=== PATIENT | male | born 1955 | race Two or more races ===

== ENCOUNTER 2016-07-13 20:30 | Inpatient (IN) | payer OTHER ==
[2016-07-13 22:10] VITALS: BMI 24.1
--- NOTE | 2016-07-13 22:50 | HP ---
CIWA Score - CIWA Score Nausea/Vomitin Muscle Tremors: 4-Moderate,w/Arms Extend Anxiety: 4-Mod. Anxious/Guarded Agitation: 4-Moderately Restless Paroxysmal Sweats: 4-Forehead w/Sweat Beads Orientation: 1-Uncertain about Date Tacttile Disturbances: 0-None Auditory Disturbances: 0-None Visual Disturbances: 0-None Headache: 2-Mild CIWA-Ar Total Score: 22 Admission ROS BHS - HPI Chief Complaint: WITHDRAWAL SX'S Allergies/Adverse Reactions: Allergies Allergy/AdvReac Type Severity Reaction Status Date / Time Penicillins Allergy Severe Elevated Verified 07/13/16 22:45 Blood Pressure History of Present Illness: 61 Y.O. MALE WITH LONG H/O ALCOHOL DEPENDENCE ADMITTED FOR DETOX TXMENT. DENIES RECENT DETOX TXMENT. STATES LONGEST CLEAN TIME 1 MONTH. CLIENT WAS SEEN AT [facility] ED TODAY FOR SEIZURES DUE TO ALCOHOL WITHDRAWAL. DOCUMENTATION PROVIDED. HEAD CT FOR HEAD TRAUMA NOTED NO ACUTE INTRACRANIAL HEMORRHAGE OR DISPLACED CALVARIAL FX. LEFT FORHEAD SOFT TISSUE INJURY. HE ALSO GIVEN VALIUM AND LIBRIUM FOR ALCOHOL WITHDRAWAL SEIZURES W/O COMPLICATIONS. WAS BEEN MEDICALLY CLEARED AND DC FOR DETOX. Exam Limitations: Physical Impairment (AMBULATES WITH CANE) - Ebola screening Have you traveled outside of the country in the last 21 days: No (N) Have you had contact with anyone from an Ebola affected area: No Have you been sick,other than usual withdrawal symptoms: No Do you have a fever: No - Review of Systems Constitutional: Chills, Loss of Appetite, Malaise, Night Sweats EENT: reports: Nose Congestion, Dental Problems (POOR DENTITION) Respiratory: reports: No Symptoms reported Cardiac: reports: No Symptoms Reported GI: reports: Diarrhea, Poor Appetite, Poor Fluid Intake : reports: No Symptoms Reported Musculoskeletal: reports: Other (HAND AND LEG CRAMPS) Integumentary: reports: Other (L FOREHEAD HEMATOMA) Neuro: reports: Seizure (ALCOHOL WITHDRAWALS) Endocrine: reports: No Symptoms Reported Hematology: reports: No Symptoms Reported Psychiatric: reports: Anxious Other Systems: Reviewed and Negative Patient History - Patient Medical History Hx Anemia: No Hx Asthma: No Hx Chronic Obstructive Pulmonary Disease (COPD): No Hx Cancer: No Hx Cardiac Disorders: No Hx Congestive Heart Failure: No Hx Hypertension: Yes (DOES NOT RECALL MEDS. REPORTS NON COMPLIANCE) Hx Hypercholesterolemia: No Hx Pacemaker: No HX Cerebrovascular Accident: No Hx Seizures: Yes (ALCOHOL RELATED LAST ONE TODAY) Hx Dementia: No Hx Diabetes: No Hx Gastrointestinal Disorders: No Hx Liver Disease: No Hx Genitourinary Disorders: No Hx Sexually Transmitted Disorders: No Hx Renal Disease (ESRD): No Hx Thyroid Disease: No Hx Human Immunodeficiency Virus (HIV): No Hx Hepatitis C: No Hx Depression: No Hx Suicide Attempt: No Hx Bipolar Disorder: No Hx Schizophrenia: No Other Medical History: DENIES - Patient Surgical History Past Surgical History: Yes Hx Neurologic Surgery: No Hx Cataract Extraction: No Hx Cardiac Surgery: No Hx Lung Surgery: No Hx Breast Surgery: No Hx Breast Biopsy: No Hx Abdominal Surgery: No Hx Appendectomy: No Hx Cholecystectomy: No Hx Genitourinary Surgery: No Hx Section: No Hx Orthopedic Surgery: Yes (FX OF R TIBIA/FIBULA) Anesthesia Reaction: No - PPD History Previous Implant?: Yes Documented Results: Negative w/o proof Implanted On Prior R Admission?: No PPD to be Administered?: Yes - Smoking Cessation Smoking history: Current every day smoker Have you smoked in the past 12 months: Yes Aproximately how many cigarettes per day: 20 Cigars Per Day: 0 Hx Chewing Tobacco Use: No Initiated information on smoking cessation: Yes 'Breaking Loose' booklet given: 07/13/16 - Substance & Tx. History Hx Alcohol Use: Yes Hx Substance Use: Yes Substance Use Type: Alcohol Hx Substance Use Treatment: Yes ([facility]) - Substances Abused Alcohol Route: Oral Frequency: Daily Amount used: liquor- 3 pints Age of first use: 10 Date of Last Use: 07/13/16 Family Disease History - Family Disease History Family Disease History: Heart Disease: Father ( [place]), Mother, Other: Brother (ALCOHOL/DRUG ABUSE) Admission Physical Exam S - Vital Signs Vital Signs: Vital Signs - 24 hr 07/13/16 22:06 Temperature 95.7 F L Pulse Rate 102 H Respiratory 18 Rate Blood Pressure 148/99 - Physical General Appearance: Yes: Disheveled, Mild Distress, Tremorous, Sweating, Anxious , Other (UNKEMPT. SMELLS OF URINE) HEENTM: Yes: EOMI, GAVI, Pharynx Normal Respiratory: Yes: Chest Non-Tender, Lungs Clear, Normal Breath Sounds, No Respiratory Distress, No Accessory Muscle Use Neck: Yes: No masses,lesions,Nodules, Supple, Trachea in good position Breast: Yes: Breast Exam Deferred Cardiology: Yes: Regular Rhythm, Regular Rate, S1, S2 Abdominal: Yes: Normal Bowel Sounds, Non Tender, Flat, Soft Genitourinary: Yes: Within Normal Limits Back: Yes: Normal Inspection Musculoskeletal: Yes: full range of Motion, Other (AMBULATES WITH CANE) Extremities: Yes: Normal Range of Motion, Non-Tender, Tremors Neurological: Yes: Alert, Motor Strength 5/5 Integumentary: Yes: Other (L FOREHEAD HEMATOMA WITH SUPERFICIAL ABRASIONS) Lymphatic: Yes: Within Normal Limits - Diagnostic (1) Alcohol dependence with uncomplicated withdrawal Current Visit: Yes Status: Acute (2) Alcohol withdrawal seizure Current Visit: Yes Status: Acute Qualifiers: Complication of substance-induced condition: uncomplicated Qualified Code(s): F10.230 - Alcohol dependence with withdrawal, uncomplicated (3) Nicotine dependence Current Visit: Yes Status: Acute Qualifiers: Nicotine product type: cigarettes Substance use status: uncomplicated Qualified Code(s): F17.210 - Nicotine dependence, cigarettes, uncomplicated (4) Traumatic hematoma of head Current Visit: Yes Status: Acute (5) HTN (hypertension) Current Visit: Yes Status: Chronic Qualifiers: Hypertension type: essential hypertension Qualified Code(s): I10 - Essential (primary) hypertension Cleared for Admission S - Detox or Rehab [facility] Level of Care: Medically Managed Detox Regimen/Protocol: Librium [facility] Breath Alcohol Content Breath Alcohol Content: 0 Urine Drug Screen - Results Urine Drug Screen Results: BZO-Benzodiazepines
[2016-07-13] MEDS ORDERED: LOPERAMIDE HCL 2 MG CAPSULE PO PRN (23:08)
[2016-07-13] MEDS ORDERED: diphenhydrAMINE HCL 50 MG CAPSULE PO PRN (23:08)
[2016-07-13] MEDS ORDERED: chlordiazePOXIDE HCL 25 MG CAPSULE PO PRN (23:08)
[2016-07-13] MEDS ORDERED: MAGNESIUM CITRATE 300 ML BOTTLE PO PRN (23:08)
[2016-07-13] MEDS ORDERED: MAG HYDROX/AL HYDROX/SIMETH 30 ML UNIT-DOSE CUP PO PRN (23:08)
[2016-07-13] MEDS ORDERED: guaiFENesin/D-METHORPHAN HB 10 ML UNIT-DOSE CUPS PO PRN (23:08)
[2016-07-13] MEDS ORDERED: MAGNESIUM HYDROX 2400MG/30ML ORAL SUSPENSION 30 ML CUP PO PRN (23:08)
[2016-07-13] MEDS ORDERED: hydrOXYzine PAMOATE 50 MG CAPSULE (FP) PO PRN (23:08)
[2016-07-13] MEDS ORDERED: ACETAMINOPHEN 325 MG TABLET (FP) PO PRN (23:08)
[2016-07-13] MEDS ORDERED: MENTHOL/PHENOL 1 EACH UD MM PRN (23:08)
[2016-07-13] MEDS ORDERED: NICOTINE POLACRILEX 2 MG GUM BC PRN (23:08)
[2016-07-13] MEDS ORDERED: P-EPHED 60MG/TRIPROLIDI 2.5MG TABLET PO PRN (23:08)
[2016-07-13] MEDS ORDERED: IBUPROFEN 400 MG TABLET (FP) PO PRN (23:08)
[2016-07-13] MEDS ORDERED: cloNIDine HCL 0.1 MG TABLET PO PRN (23:14)
[2016-07-13] MEDS: chlordiazePOXIDE HCL 25 MG CAPSULE PO SCH (23:35)
[2016-07-14] MEDS: chlordiazePOXIDE HCL 25 MG CAPSULE PO SCH ×4 (06:02→22:26)
--- NOTE | 2016-07-14 10:07 | PN ---
[facility] CIWA - CIWA Score Nausea/Vomitin-No Nausea/No Vomiting Muscle Tremors: 4-Moderate,w/Arms Extend Anxiety: 4-Mod. Anxious/Guarded Agitation: 4-Moderately Restless Paroxysmal Sweats: 2 Orientation: 0-Oriented Tacttile Disturbances: 3-Moderate Itch/Numb/Burn Auditory Disturbances: 0-None Visual Disturbances: 0-None Headache: 0-None Present CIWA-Ar Total Score: 17 BHS Progress Note (SOAP) Subjective: ANXIETY,SWEATS,TREMORS,FATIGUE. Objective: 07/14/16 10:07 Vital Signs Temperature 96.3 F L 07/14/16 09:44 Pulse Rate 111 H 07/14/16 09:44 Respiratory Rate 20 07/14/16 09:44 Blood Pressure 149/88 07/14/16 09:44 O2 Sat by Pulse Oximetry (%) LABS PENDING Assessment: 07/14/16 10:07 WITHDRAWAL SX Plan: CONTINUE DETOX
[2016-07-14] MEDS: PRENATAL VITAMINS W/ FOLIC ACID TABLET (FP) PO SCH (10:09)
[2016-07-14] MEDS: NICOTINE 21 MG/24 HOURS TOPICAL PATCH TD SCH (10:10)
[2016-07-14 10:11] LABS: MCH 30.9 pg (25.7-33.7); MCHC 33.4 g/dl (32.0-35.9); MEAN CELL VOLUME 92.5 fl (80-96); MEAN PLT VOLUME 7.2 fl (7.5-11.1); PLATELET COUNT 175 K/MM3 (134-434); WHITE BLOOD COUNT 5.4 K/mm3 (4.0-10.0)
[2016-07-14 10:55] LABS: ALBUMIN 3.1 g/dl (3.4-5.0); ALK PHOS 114 U/L (45-117); ANION GAP 7 (8-16); BILIRUBIN,TOTAL 1.1 mg/dL (0.2-1.0); CALCIUM 8.3 mg/dL (8.5-10.1); CO2 29 mmol/L (21-32); CREATININE 0.8 mg/dL (0.7-1.3); GLUCOSE,RANDOM 97 mg/dL (74-106); SGOT/AST 55 U/L (15-37); SGPT/ALT 36 U/L (12-78); TOT PROT 6.2 g/dl (6.4-8.2)
--- NOTE | 2016-07-14 11:01 | EKG ---
Test Reason : Blood Pressure : / mmHG Vent. Rate : 097 BPM Atrial Rate : 097 BPM P-R Int : 136 ms QRS Dur : 070 ms QT Int : 360 ms P-R-T Axes : 071 054 080 degrees QTc Int : 457 ms NORMAL SINUS RHYTHM BIATRIAL ENLARGEMENT NONSPECIFIC ST AND T WAVE ABNORMALITY ABNORMAL ECG NO PREVIOUS ECGS AVAILABLE Confirmed by LISE CAREY MD ([id number]) on 07/14/2016 11:01:36 AM Referred By: Confirmed By:LISE CAREY MD
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
[2016-07-14 20:20] LABS: URINE APPEARANCE CLEAR; URINE BILIRUBIN NEGATIVE (NEGATIVE); URINE BLOOD NEGATIVE (NEGATIVE); URINE COLOR YELLOW; URINE GLUCOSE (UA) NEGATIVE (NEGATIVE); URINE KETONE NEGATIVE (NEGATIVE); URINE LEUK ESTERASE NEGATIVE (NEGATIVE); URINE NITRITE NEGATIVE (NEGATIVE); URINE PROTEIN NEGATIVE (NEGATIVE); URINE UROBILINOGEN 4.0 E.U/dl E.U./dl (0.2-1.0)
[2016-07-14] MEDS: THIAMINE HCL 100 MG TABLET (FP) PO SCH (22:25)
[2016-07-15] MEDS: chlordiazePOXIDE HCL 25 MG CAPSULE PO SCH ×3 (06:22→17:40)
--- NOTE | 2016-07-15 09:01 | PN ---
[facility] CIWA - CIWA Score Nausea/Vomitin-No Nausea/No Vomiting Muscle Tremors: 4-Moderate,w/Arms Extend Anxiety: 4-Mod. Anxious/Guarded Agitation: 4-Moderately Restless Paroxysmal Sweats: 1-Minimal Palms Moist Orientation: 0-Oriented Tacttile Disturbances: 3-Moderate Itch/Numb/Burn Auditory Disturbances: 0-None Visual Disturbances: 0-None Headache: 0-None Present CIWA-Ar Total Score: 16 BHS Progress Note (SOAP) Subjective: ANXIETY,SWEATS,TREMORS. Objective: 07/15/16 09:00 Vital Signs Temperature 96.9 F L 07/15/16 06:49 Pulse Rate 97 H 07/15/16 06:49 Respiratory Rate 18 07/15/16 06:49 Blood Pressure 132/90 07/15/16 06:49 O2 Sat by Pulse Oximetry (%) Laboratory Last Values WBC 5.4 K/mm3 (4.0-10.0) 07/14/16 07:00 RBC 4.09 M/mm3 (4.00-5.60) 07/14/16 07:00 Hgb 12.7 GM/dL (11.7-16.9) 07/14/16 07:00 Hct 37.8 % (35.4-49) 07/14/16 07:00 MCV 92.5 fl (80-96) 07/14/16 07:00 MCHC 33.4 g/dl (32.0-35.9) 07/14/16 07:00 RDW 16.0 % (11.9-15.9) H 07/14/16 07:00 Plt Count 175 K/MM3 (134-434) 07/14/16 07:00 MPV 7.2 fl (7.5-11.1) L 07/14/16 07:00 Sodium 141 mmol/L (136-145) 07/14/16 07:00 Potassium 3.7 mmol/L (3.5-5.1) 07/14/16 07:00 Chloride 105 mmol/L (98-107) 07/14/16 07:00 Carbon Dioxide 29 mmol/L (21-32) 07/14/16 07:00 Anion Gap 7 (8-16) L 07/14/16 07:00 BUN 11 mg/dL (7-18) 07/14/16 07:00 Creatinine 0.8 mg/dL (0.7-1.3) 07/14/16 07:00 Creat Clearance w eGFR > 60 (>60) 07/14/16 07:00 Random Glucose 97 mg/dL (74-106) 07/14/16 07:00 Calcium 8.3 mg/dL (8.5-10.1) L 07/14/16 07:00 Total Bilirubin 1.1 mg/dL (0.2-1.0) H 07/14/16 07:00 AST 55 U/L (15-37) H 07/14/16 07:00 ALT 36 U/L (12-78) 07/14/16 07:00 Alkaline Phosphatase 114 U/L (45-117) 07/14/16 07:00 Total Protein 6.2 g/dl (6.4-8.2) L 07/14/16 07:00 Albumin 3.1 g/dl (3.4-5.0) L 07/14/16 07:00 Urine Color Yellow 07/14/16 14:00 Urine Appearance Clear 07/14/16 14:00 Urine pH 9.0 (5.0-8.0) H 07/14/16 14:00 Ur Specific [place] 1.012 (1.001-1.035) 07/14/16 14:00 Urine Protein Negative (NEGATIVE) 07/14/16 14:00 Urine Glucose (UA) Negative (NEGATIVE) 07/14/16 14:00 Urine Clinitest Cancelled 07/14/16 14:00 Urine Ketones Negative (NEGATIVE) 07/14/16 14:00 Urine Blood Negative (NEGATIVE) 07/14/16 14:00 Urine Nitrite Negative (NEGATIVE) 07/14/16 14:00 Urine Bilirubin Negative (NEGATIVE) 07/14/16 14:00 Urine Ictotest Cancelled 07/14/16 14:00 Prot Sulfosalicylic Acd Cancelled 07/14/16 14:00 Urine Urobilinogen 4.0 e.u/dl E.U./dl (0.2-1.0) 07/14/16 14:00 Ur Leukocyte Esterase Negative (NEGATIVE) 07/14/16 14:00 RPR Titer Nonreactive (NONREACTIVE) 07/14/16 07:00 Assessment: 07/15/16 09:01 WITHDRAWAL SX Plan: CONTINUE DETOX
[2016-07-15] MEDS: PRENATAL VITAMINS W/ FOLIC ACID TABLET (FP) PO SCH (10:41)
[2016-07-15] MEDS: NICOTINE 21 MG/24 HOURS TOPICAL PATCH TD SCH (10:41)
[2016-07-15] MEDS: chlordiazePOXIDE 5 MG CAPSULE PO SCH (22:13)
[2016-07-15] MEDS: THIAMINE HCL 100 MG TABLET (FP) PO SCH (22:13)
[2016-07-16] MEDS: chlordiazePOXIDE 5 MG CAPSULE PO SCH ×3 (05:49→17:52)
[2016-07-16] MEDS: PRENATAL VITAMINS W/ FOLIC ACID TABLET (FP) PO SCH (10:47)
[2016-07-16] MEDS: NICOTINE 21 MG/24 HOURS TOPICAL PATCH TD SCH (10:48)
--- NOTE | 2016-07-16 12:50 | PN ---
BHS Progress Note (SOAP) Subjective: ANXIETY, SWEATS, FATIGUE. Objective: 07/16/16 12:49 Vital Signs Temperature 97.0 F L 07/16/16 10:40 Pulse Rate 100 H 07/16/16 10:40 Respiratory Rate 20 07/16/16 10:40 Blood Pressure 130/84 07/16/16 10:40 O2 Sat by Pulse Oximetry (%) Assessment: 07/16/16 12:50 WITHDRAWAL SX Plan: CONTINUE DETOX
[2016-07-16] MEDS: chlordiazePOXIDE HCL 10 MG CAPSULE PO SCH (22:05)
[2016-07-16] MEDS: THIAMINE HCL 100 MG TABLET (FP) PO SCH (22:05)
[2016-07-17] MEDS: chlordiazePOXIDE HCL 10 MG CAPSULE PO SCH (05:45)
[2016-07-17 06:42] VITALS: BP 141/87; PULSE 86; TEMP 97.2
--- NOTE | 2016-07-17 11:08 | DS ---
[facility] Detox Discharge Summary Admission Date: 07/13/16 Discharge Date: 07/17/16 - History Present History: Alcohol Dependence Additional Comments: DETOX COMPLETED. Pertinent Past History: HTN TRUAMATIC HEMATOMA OF HEAD WITDRAWAL SEIZURES - Physical Exam Results Vital Signs: Vital Signs Temperature 97.2 F L 07/17/16 06:41 Pulse Rate 86 07/17/16 06:41 Respiratory Rate 18 07/17/16 06:41 Blood Pressure 141/87 07/17/16 06:41 O2 Sat by Pulse Oximetry (%) Pertinent Admission Physical Exam Findings: WITHDRAWAL SX - Treatment Hospital Course: Detox Protocol Followed, Detoxed Safely, Responded well, Discharged Condition Good - Medication Discharge Medications: Ambulatory Orders Nitroglycerin Sublingual [Nitrostat -] 0.3 mg SL PRN 07/13/16 - Diagnosis (1) Alcohol dependence with uncomplicated withdrawal Status: Acute (2) Alcohol withdrawal seizure Status: Chronic Qualifiers: Complication of substance-induced condition: uncomplicated Qualified Code(s): F10.230 - Alcohol dependence with withdrawal, uncomplicated (3) Nicotine dependence Status: Chronic Qualifiers: Nicotine product type: cigarettes Substance use status: uncomplicated Qualified Code(s): F17.210 - Nicotine dependence, cigarettes, uncomplicated (4) HTN (hypertension) Status: Chronic Qualifiers: Hypertension type: essential hypertension Qualified Code(s): I10 - Essential (primary) hypertension - AMA Did Patient Leave Against Medical Advice: No
== END 2016-07-17 10:20 | disposition home or self-care (01) | DRG 775 ==
LOC: YASAS 20:30 → Y3N 22:18
PROVIDERS: ADMIT Internal Medicine; ATTEND Internal Medicine
PROC: HZ2ZZZZ Detoxification Services for Substance Abuse Treatment (ICD-10-PCS; principal; 2016-07-13)
DX: F10.230 Alcohol dependence with withdrawal, uncomplicated (principal); F17.210 Nicotine dependence, cigarettes, uncomplicated; I10 Essential (primary) hypertension; Z86.69 Personal history of other diseases of the nervous system and sense organs; S00.83XD Contusion of other part of head, subsequent encounter; W19.XXXD Unspecified fall, subsequent encounter
CPT/HCPCS: 36415; 80053; 81003; 85027; 86593; 93005; 93010

== ENCOUNTER 2016-11-21 17:27 | Inpatient (IN) | payer OTHER ==
[2016-11-21 18:21] VITALS: BMI 22.1
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
[2016-11-21] MEDS ORDERED: LOPERAMIDE HCL 2 MG CAPSULE PO PRN (20:20)
[2016-11-21] MEDS ORDERED: guaiFENesin/D-METHORPHAN HB 10 ML UNIT-DOSE CUPS PO PRN (20:20)
[2016-11-21] MEDS ORDERED: MAGNESIUM CITRATE 300 ML BOTTLE PO PRN (20:20)
[2016-11-21] MEDS ORDERED: NICOTINE POLACRILEX 2 MG GUM BC PRN (20:20)
[2016-11-21] MEDS ORDERED: ACETAMINOPHEN 325 MG TABLET (FP) PO PRN (20:20)
[2016-11-21] MEDS ORDERED: chlordiazePOXIDE HCL 25 MG CAPSULE PO PRN (20:20)
[2016-11-21] MEDS ORDERED: hydrOXYzine PAMOATE 50 MG CAPSULE (FP) PO PRN (20:20)
[2016-11-21] MEDS ORDERED: diphenhydrAMINE HCL 50 MG CAPSULE PO PRN (20:20)
[2016-11-21] MEDS ORDERED: MAGNESIUM HYDROX 2400MG/30ML ORAL SUSPENSION 30 ML CUP PO PRN (20:20)
[2016-11-21] MEDS ORDERED: P-EPHED 60MG/TRIPROLIDI 2.5MG TABLET PO PRN (20:20)
[2016-11-21] MEDS ORDERED: MAG HYDROX/AL HYDROX/SIMETH 30 ML UNIT-DOSE CUP PO PRN (20:20)
[2016-11-21] MEDS ORDERED: MENTHOL/PHENOL 1 EACH UD MM PRN (20:20)
[2016-11-21] MEDS: NICOTINE 21 MG/24 HOURS TOPICAL PATCH TD SCH (23:30)
[2016-11-21] MEDS: chlordiazePOXIDE HCL 25 MG CAPSULE PO SCH (23:32)
[2016-11-21] MEDS: THIAMINE HCL 100 MG TABLET (FP) PO SCH (23:32)
[2016-11-21] MEDS: cloNIDine HCL 0.1 MG TABLET PO SCH (23:33)
[2016-11-22] MEDS: chlordiazePOXIDE HCL 25 MG CAPSULE PO SCH ×4 (07:25→22:46)
--- NOTE | 2016-11-22 07:26 | PN ---
S Progress Note Note: PT SEEN THIS MORNING AWAKE/ ALERT LYING IN BED NAD DENIES ANY PRESENT C/O BUT ASKING FOR VODKA. MAINTAINED ON 1:1 OVERNIGHT RN REPORT UNEVENTFUL, SLEPT FOR THE MOST PART OF THE NIGHT KERRY NOW .002 LIBRIUM PROTOCOL STARTED WILL CONT TO MONITOR CLOSELY Vital Signs - 8 hr 11/22/16 11/22/16 11/22/16 00:30 03:30 06:15 Temperature 98.2 F Pulse Rate 99 H Respiratory 18 20 16 Rate Blood Pressure 94/54
[2016-11-22] MEDS: PRENATAL VITAMINS W/ FOLIC ACID TABLET (FP) PO SCH (10:44)
[2016-11-22] MEDS: cloNIDine HCL 0.1 MG TABLET PO SCH ×2 (10:44→22:47)
[2016-11-22] MEDS: NICOTINE 21 MG/24 HOURS TOPICAL PATCH TD SCH (10:47)
[2016-11-22 10:49] LABS: MCH 31.7 pg (25.7-33.7); MCHC 33.6 g/dl (32.0-35.9); MEAN CELL VOLUME 94.2 fl (80-96); MEAN PLT VOLUME 7.2 fl (7.5-11.1); PLATELET COUNT 241 K/MM3 (134-434); RDW 14.6 % (11.9-15.9)
[2016-11-22 11:10] LABS: ALK PHOS 125 U/L (45-117); ANION GAP 12 (8-16); BILIRUBIN,TOTAL 0.5 mg/dL (0.2-1.0); CALCIUM 7.9 mg/dL (8.5-10.1); CO2 28 mmol/L (21-32); COCKROFT - GAULT 96.17; CREATININE 0.7 mg/dL (0.7-1.3); GLUCOSE,RANDOM 61 mg/dL (74-106); SGOT/AST 21 U/L (15-37); SGPT/ALT 18 U/L (12-78); TOT PROT 6.4 g/dl (6.4-8.2)
[2016-11-22] MEDS: IBUPROFEN 400 MG TABLET (FP) PO PRN ×2 (11:45→22:30)
--- NOTE | 2016-11-22 13:52 | PN ---
S CIWA - CIWA Score Nausea/Vomitin Muscle Tremors: 4-Moderate,w/Arms Extend Anxiety: 4-Mod. Anxious/Guarded Agitation: 4-Moderately Restless Paroxysmal Sweats: 4-Forehead w/Sweat Beads Orientation: 0-Oriented Tacttile Disturbances: 1-Very Mild Itch/Numbness Auditory Disturbances: 0-None Visual Disturbances: 0-None Headache: 2-Mild CIWA-Ar Total Score: 21 BHS Progress Note (SOAP) Subjective: Back pain, tremor, chills, sweating, muscle spasm Objective: 11/22/16 13:49 Last Vital Signs Temp Pulse Resp BP Pulse Ox 97.1 F L 101 H 20 107/70 11/22/16 13:23 11/22/16 13:23 11/22/16 13:23 11/22/16 13:23 PE: A/A/Ox3, gait unsteady despite use of cane, continue 1:1 observation for safety Laboratory Tests 11/22/16 11/22/16 11/22/16 07:45 07:45 07:45 WBC 7.0 RBC 3.75 L Hgb 11.9 Hct 35.4 MCV 94.2 MCHC 33.6 RDW 14.6 Plt Count 241 D MPV 7.2 L Sodium 143 Potassium 3.2 L Chloride 103 Carbon Dioxide 28 Anion Gap 12 BUN 10 Creatinine 0.7 Creat Clearance w eGFR > 60 Random Glucose 61 L D Calcium 7.9 L Total Bilirubin 0.5 D AST 21 D ALT 18 D Alkaline Phosphatase 125 H Total Protein 6.4 Albumin 3.0 L RPR Titer Nonreactive Labs noted: K 3.2 Assessment: 11/22/16 13:50 Withdrawal symptoms Noted with hypokalemia Plan: Continue detox Encouraged to drink lots of water (water pitcher ordered) Hypokalemia: start K DUR 40meq PO x 2 doses today, repeat BMP in AM Continue 1 to 1 observation due to unsteady gait and increased risk for fall
[2016-11-22] MEDS: POTASSIUM CHLORIDE TABS 20 MEQ TABLET.ER (FP) PO SCH ×2 (14:46→17:58)
--- NOTE | 2016-11-22 16:36 | EKG ---
Test Reason : Blood Pressure : / mmHG Vent. Rate : 099 BPM Atrial Rate : 099 BPM P-R Int : 140 ms QRS Dur : 068 ms QT Int : 374 ms P-R-T Axes : 070 054 016 degrees QTc Int : 479 ms NORMAL SINUS RHYTHM POSSIBLE LEFT ATRIAL ENLARGEMENT NONSPECIFIC T WAVE ABNORMALITY PROLONGED QT ABNORMAL ECG WHEN COMPARED WITH ECG OF 14-JUL-2016 00:48, NO SIGNIFICANT CHANGE WAS FOUND Confirmed by OSCAR RUSSELL MD ([id number]) on 11/22/2016 4:36:15 PM Referred By: Confirmed By:OSCAR RUSSELL MD
[2016-11-22 21:05] LABS: URINE APPEARANCE CLEAR; URINE BILIRUBIN NEGATIVE (NEGATIVE); URINE BLOOD NEGATIVE (NEGATIVE); URINE COLOR DKYELLOW; URINE GLUCOSE (UA) NEGATIVE (NEGATIVE); URINE KETONE NEGATIVE (NEGATIVE); URINE LEUK ESTERASE NEGATIVE (NEGATIVE); URINE NITRITE NEGATIVE (NEGATIVE); URINE PROTEIN NEGATIVE (NEGATIVE); URINE UROBILINOGEN 4.0 E.U/dl E.U./dl (0.2-1.0)
[2016-11-22] MEDS: THIAMINE HCL 100 MG TABLET (FP) PO SCH (22:47)
[2016-11-23] MEDS: chlordiazePOXIDE HCL 25 MG CAPSULE PO SCH ×3 (05:55→17:38)
[2016-11-23] MEDS: IBUPROFEN 400 MG TABLET (FP) PO PRN ×3 (06:59→22:30)
[2016-11-23] MEDS ORDERED: IBUPROFEN 400 MG TABLET (FP) PO PRN (07:29)
--- NOTE | 2016-11-23 09:52 | PN ---
[facility] CIWA - CIWA Score Nausea/Vomitin-No Nausea/No Vomiting Muscle Tremors: 4-Moderate,w/Arms Extend Anxiety: 3 Agitation: 4-Moderately Restless Paroxysmal Sweats: 3 Orientation: 0-Oriented Tacttile Disturbances: 1-Very Mild Itch/Numbness Auditory Disturbances: 0-None Visual Disturbances: 0-None Headache: 0-None Present CIWA-Ar Total Score: 15 S Progress Note (SOAP) Subjective: Anxiety,tremors,sweating,interrupted sleep,restless.C/O severe back pain,Motrin increased to 800mg Q6h prn. Objective: 11/23/16 09:51 Vital Signs - 8 hr 11/23/16 11/23/16 11/23/16 03:30 06:08 09:49 Temperature 96.3 F L 98.3 F Pulse Rate 69 77 Respiratory 18 16 18 Rate Blood Pressure 122/80 116/66 Laboratory Last Values WBC 7.0 K/mm3 (4.0-10.0) 11/22/16 07:45 RBC 3.75 M/mm3 (4.00-5.60) L 11/22/16 07:45 Hgb 11.9 GM/dL (11.7-16.9) 11/22/16 07:45 Hct 35.4 % (35.4-49) 11/22/16 07:45 MCV 94.2 fl (80-96) 11/22/16 07:45 MCHC 33.6 g/dl (32.0-35.9) 11/22/16 07:45 RDW 14.6 % (11.9-15.9) 11/22/16 07:45 Plt Count 241 K/MM3 (134-434) D 11/22/16 07:45 MPV 7.2 fl (7.5-11.1) L 11/22/16 07:45 Sodium 143 mmol/L (136-145) 11/22/16 07:45 Potassium 3.2 mmol/L (3.5-5.1) L 11/22/16 07:45 Chloride 103 mmol/L (98-107) 11/22/16 07:45 Carbon Dioxide 28 mmol/L (21-32) 11/22/16 07:45 Anion Gap 12 (8-16) 11/22/16 07:45 BUN 10 mg/dL (7-18) 11/22/16 07:45 Creatinine 0.7 mg/dL (0.7-1.3) 11/22/16 07:45 Creat Clearance w eGFR > 60 (>60) 11/22/16 07:45 Random Glucose 61 mg/dL (74-106) L D 11/22/16 07:45 Calcium 7.9 mg/dL (8.5-10.1) L 11/22/16 07:45 Total Bilirubin 0.5 mg/dL (0.2-1.0) D 11/22/16 07:45 AST 21 U/L (15-37) D 11/22/16 07:45 ALT 18 U/L (12-78) D 11/22/16 07:45 Alkaline Phosphatase 125 U/L (45-117) H 11/22/16 07:45 Total Protein 6.4 g/dl (6.4-8.2) 11/22/16 07:45 Albumin 3.0 g/dl (3.4-5.0) L 11/22/16 07:45 Urine Color Dkyellow 11/22/16 19:20 Urine Appearance Clear 11/22/16 19:20 Urine pH 5.0 (5.0-8.0) D 11/22/16 19:20 Urine Protein Negative (NEGATIVE) 11/22/16 19:20 Urine Glucose (UA) Negative (NEGATIVE) 11/22/16 19:20 Urine Ketones Negative (NEGATIVE) 11/22/16 19:20 Urine Blood Negative (NEGATIVE) 11/22/16 19:20 Urine Nitrite Negative (NEGATIVE) 11/22/16 19:20 Urine Bilirubin Negative (NEGATIVE) 11/22/16 19:20 Urine Urobilinogen 4.0 e.u/dl E.U./dl (0.2-1.0) 11/22/16 19:20 Ur Leukocyte Esterase Negative (NEGATIVE) 11/22/16 19:20 RPR Titer Nonreactive (NONREACTIVE) 11/22/16 07:45 labs noted,k+ 3.2 k-dur started Assessment: 11/23/16 09:51 Withdrawal sx Hypokalemia Plan: Continue detox
[2016-11-23] MEDS: PRENATAL VITAMINS W/ FOLIC ACID TABLET (FP) PO SCH (10:27)
[2016-11-23] MEDS: cloNIDine HCL 0.1 MG TABLET PO SCH ×2 (10:27→22:45)
[2016-11-23] MEDS: NICOTINE 21 MG/24 HOURS TOPICAL PATCH TD SCH (10:32)
[2016-11-23] MEDS: LIDOCAINE 5% TOPICAL PATCH TP SCH (10:32)
[2016-11-23] MEDS: POTASSIUM CHLORIDE TABS 20 MEQ TABLET.ER (FP) PO SCH ×2 (10:33→22:45)
[2016-11-23 11:05] LABS: CALCIUM 8.6 mg/dL (8.5-10.1)
[2016-11-23 11:07] LABS: COCKROFT - GAULT 96.17; CREATININE 0.7 mg/dL (0.7-1.3)
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
[2016-11-23] MEDS: chlordiazePOXIDE 5 MG CAPSULE PO SCH (22:45)
[2016-11-23] MEDS: LIDOCAINE PATCH REMOVAL MC SCH (22:46)
[2016-11-23] MEDS: THIAMINE HCL 100 MG TABLET (FP) PO SCH (22:46)
[2016-11-24] MEDS: chlordiazePOXIDE 5 MG CAPSULE PO SCH ×3 (06:30→17:55)
[2016-11-24] MEDS: IBUPROFEN 400 MG TABLET (FP) PO PRN (08:42)
[2016-11-24] MEDS: LIDOCAINE 5% TOPICAL PATCH TP SCH (09:51)
[2016-11-24] MEDS: POTASSIUM CHLORIDE TABS 20 MEQ TABLET.ER (FP) PO SCH ×2 (09:51→22:48)
[2016-11-24] MEDS: cloNIDine HCL 0.1 MG TABLET PO SCH ×2 (09:51→22:48)
[2016-11-24] MEDS: PRENATAL VITAMINS W/ FOLIC ACID TABLET (FP) PO SCH (09:51)
[2016-11-24] MEDS: NICOTINE 21 MG/24 HOURS TOPICAL PATCH TD SCH (09:52)
[2016-11-24] MEDS ORDERED: BACITRACIN 0.9 GM PACKET TP SCH (11:00)
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
[2016-11-24] MEDS: chlordiazePOXIDE HCL 10 MG CAPSULE PO SCH (22:48)
[2016-11-24] MEDS: THIAMINE HCL 100 MG TABLET (FP) PO SCH (22:49)
[2016-11-24] MEDS: LIDOCAINE PATCH REMOVAL MC SCH (22:49)
[2016-11-25] MEDS: chlordiazePOXIDE HCL 10 MG CAPSULE PO SCH (06:30)
[2016-11-25 10:04] VITALS: BP 132/97; PULSE 88; TEMP 98.2
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
== END 2016-11-25 11:20 | disposition home or self-care (01) | DRG 775 ==
LOC: YASAS 17:27 → Y3N 20:19
PROVIDERS: ADMIT Internal Medicine; ATTEND Internal Medicine
PROC: HZ2ZZZZ Detoxification Services for Substance Abuse Treatment (ICD-10-PCS; principal; 2016-11-25)
DX: F10.230 Alcohol dependence with withdrawal, uncomplicated (principal); F17.210 Nicotine dependence, cigarettes, uncomplicated; F10.24 Alcohol dependence with alcohol-induced mood disorder; G40.509 Epileptic seizures related to external causes, not intractable, without status epilepticus; I10 Essential (primary) hypertension
CPT/HCPCS: 36415; 80048; 80053; 81003; 85027; 86593; 93005; 93010; J0735

== ENCOUNTER 2017-07-29 12:43 | Inpatient (IN) | payer OTHER ==
[2017-07-29] MEDS ORDERED: PERMETHRIN 5% TOPICAL CREAM 60 GM TUBE TP ONE ×2 (14:44→17:45)
[2017-07-29 16:17] VITALS: BMI 21.1
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
[2017-07-29] MEDS ORDERED: IBUPROFEN 400 MG TABLET (FP) PO PRN (16:52)
[2017-07-29] MEDS ORDERED: MENTHOL/PHENOL 1 EACH UD MM PRN (16:52)
[2017-07-29] MEDS ORDERED: ACETAMINOPHEN 325 MG TABLET (FP) PO PRN (16:52)
[2017-07-29] MEDS ORDERED: guaiFENesin/D-METHORPHAN HB 10 ML UNIT-DOSE CUPS PO PRN (16:52)
[2017-07-29] MEDS ORDERED: chlordiazePOXIDE HCL 25 MG CAPSULE PO PRN (16:52)
[2017-07-29] MEDS ORDERED: MAGNESIUM CITRATE 300 ML BOTTLE PO PRN (16:52)
[2017-07-29] MEDS ORDERED: MAG HYDROX/AL HYDROX/SIMETH 30 ML UNIT-DOSE CUP PO PRN (16:52)
[2017-07-29] MEDS ORDERED: NICOTINE POLACRILEX 4 MG GUM BC PRN (16:52)
[2017-07-29] MEDS ORDERED: P-EPHED 60MG/TRIPROLIDI 2.5MG TABLET PO PRN (16:52)
[2017-07-29] MEDS ORDERED: MAGNESIUM HYDROX 2400MG/30ML ORAL SUSPENSION 30 ML CUP PO PRN (16:52)
[2017-07-29] MEDS ORDERED: chlordiazePOXIDE HCL 25 MG CAPSULE PO ONE (17:45)
[2017-07-29] MEDS: THIAMINE HCL 100 MG TABLET (FP) PO SCH (22:58)
[2017-07-29] MEDS: chlordiazePOXIDE HCL 25 MG CAPSULE PO SCH (22:58)
[2017-07-30] MEDS: chlordiazePOXIDE HCL 25 MG CAPSULE PO SCH ×4 (06:07→22:41)
[2017-07-30 10:27] LABS: HEMATOCRIT 41.7 % (35.4-49); HEMOGLOBIN 13.6 GM/dL (11.7-16.9); MCH 30.6 pg (25.7-33.7); MCHC 32.6 g/dl (32.0-35.9); MEAN CELL VOLUME 93.9 fl (80-96); MEAN PLT VOLUME 7.6 fl (7.5-11.1); PLATELET COUNT 230 K/MM3 (134-434); RBC 4.44 M/mm3 (4.00-5.60); RDW 14.2 % (11.9-15.9); WHITE BLOOD COUNT 6.4 K/mm3 (4.0-10.0)
[2017-07-30 10:48] LABS: CHLORIDE 102 mmol/L (98-107); POTASSIUM 3.3 mmol/L (3.5-5.1); SGOT/AST 22 U/L (15-37); SGPT/ALT 19 U/L (12-78); SODIUM 138 mmol/L (136-145)
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
[2017-07-30 10:57] LABS: ALBUMIN 3.2 g/dl (3.4-5.0); ALK PHOS 132 U/L (45-117); ANION GAP 10 (8-16); BILIRUBIN,TOTAL 0.7 mg/dL (0.2-1.0); BLOOD UREA NITROGEN 10 mg/dL (7-18); CALCIUM 7.5 mg/dL (8.5-10.1); CO2 26 mmol/L (21-32); CREATININE 0.6 mg/dL (0.7-1.3); GLUCOSE,RANDOM 94 mg/dL (74-106); TOT PROT 6.4 g/dl (6.4-8.2)
--- NOTE | 2017-07-30 11:17 | PN ---
[facility] CIWA - CIWA Score Nausea/Vomitin-No Nausea/No Vomiting Muscle Tremors: 4-Moderate,w/Arms Extend Anxiety: 4-Mod. Anxious/Guarded Agitation: 4-Moderately Restless Paroxysmal Sweats: 1-Minimal Palms Moist Orientation: 0-Oriented Tacttile Disturbances: 3-Moderate Itch/Numb/Burn Auditory Disturbances: 0-None Visual Disturbances: 0-None Headache: 0-None Present CIWA-Ar Total Score: 16 BHS Progress Note (SOAP) Subjective: TREMORS,ANXIETY,DIARRHEA Objective: 07/30/17 11:15 Vital Signs Temperature 97.6 F 07/30/17 06:28 Pulse Rate 88 07/30/17 06:28 Respiratory Rate 16 07/30/17 06:28 Blood Pressure 110/70 07/30/17 06:28 O2 Sat by Pulse Oximetry (%) Laboratory Last Values WBC 6.4 K/mm3 (4.0-10.0) 07/30/17 07:00 RBC 4.44 M/mm3 (4.00-5.60) 07/30/17 07:00 Hgb 13.6 GM/dL (11.7-16.9) D 07/30/17 07:00 Hct 41.7 % (35.4-49) D 07/30/17 07:00 MCV 93.9 fl (80-96) 07/30/17 07:00 MCH 30.6 pg (25.7-33.7) 07/30/17 07:00 MCHC 32.6 g/dl (32.0-35.9) 07/30/17 07:00 RDW 14.2 % (11.9-15.9) 07/30/17 07:00 Plt Count 230 K/MM3 (134-434) 07/30/17 07:00 MPV 7.6 fl (7.5-11.1) 07/30/17 07:00 OTHER LABS PENDING Assessment: 07/30/17 11:16 WITHDRAWAL SX Plan: CONTINUE DETOX
[2017-07-30] MEDS: LOPERAMIDE HCL 2 MG CAPSULE PO PRN ×2 (11:42→23:11)
[2017-07-30] MEDS: PRENATAL VITAMINS W/ FOLIC ACID TABLET (FP) PO SCH (11:42)
[2017-07-30] MEDS: NICOTINE 21 MG/24 HOURS TOPICAL PATCH TD SCH (11:44)
[2017-07-30] MEDS: CLOTRIMAZOLE/BETAMET DIPROP TOPICAL CREAM 45 GM TUBE TP SCH ×2 (11:49→22:41)
--- NOTE | 2017-07-30 14:21 | EKG ---
Test Reason : Blood Pressure : / mmHG Vent. Rate : 092 BPM Atrial Rate : 092 BPM P-R Int : 132 ms QRS Dur : 066 ms QT Int : 350 ms P-R-T Axes : 070 046 206 degrees QTc Int : 432 ms NORMAL SINUS RHYTHM BIATRIAL ENLARGEMENT NONSPECIFIC ST AND T WAVE ABNORMALITY ABNORMAL ECG WHEN COMPARED WITH ECG OF 22-NOV-2016 04:58, QT HAS SHORTENED Confirmed by ANATOLIY ARAMBULA MD ([id number]) on 07/30/2017 2:21:14 PM Referred By: Confirmed By:ANATOLIY ARAMBULA MD
[2017-07-30] MEDS: THIAMINE HCL 100 MG TABLET (FP) PO SCH (22:40)
[2017-07-31] MEDS: chlordiazePOXIDE HCL 25 MG CAPSULE PO SCH ×3 (05:39→17:23)
[2017-07-31] MEDS: PRENATAL VITAMINS W/ FOLIC ACID TABLET (FP) PO SCH (10:30)
[2017-07-31] MEDS: CLOTRIMAZOLE/BETAMET DIPROP TOPICAL CREAM 45 GM TUBE TP SCH ×2 (10:30→22:28)
[2017-07-31] MEDS: NICOTINE 21 MG/24 HOURS TOPICAL PATCH TD SCH (10:30)
--- NOTE | 2017-07-31 16:47 | PN ---
[facility] CIWA - CIWA Score Nausea/Vomitin-No Nausea/No Vomiting Muscle Tremors: 4-Moderate,w/Arms Extend Anxiety: 4-Mod. Anxious/Guarded Agitation: 4-Moderately Restless Paroxysmal Sweats: 3 Orientation: 0-Oriented Tacttile Disturbances: 2-Mild Itch/Numbness/Burn Auditory Disturbances: 0-None Visual Disturbances: 0-None Headache: 0-None Present CIWA-Ar Total Score: 17 BHS Progress Note (SOAP) Subjective: Cramps in hands, diarrhea, dizziness (uses cane), tremor Objective: 07/31/17 16:46 Last Vital Signs Temp Pulse Resp BP Pulse Ox 98.2 F 86 18 110/76 07/31/17 14:11 07/31/17 14:11 07/31/17 14:11 07/31/17 14:11 Laboratory Tests 07/30/17 07/30/17 07/30/17 07:00 07:00 07:00 WBC 6.4 RBC 4.44 Hgb 13.6 D Hct 41.7 D MCV 93.9 MCH 30.6 MCHC 32.6 RDW 14.2 Plt Count 230 MPV 7.6 Sodium 138 Potassium 3.3 L D Chloride 102 Carbon Dioxide 26 Anion Gap 10 BUN 10 Creatinine 0.6 L Creat Clearance w eGFR > 60 Random Glucose 94 D Calcium 7.5 L Total Bilirubin 0.7 D AST 22 ALT 19 Alkaline Phosphatase 132 H Total Protein 6.4 Albumin 3.2 L RPR Titer Nonreactive Labs noted: K 3.3 Assessment: 07/31/17 16:46 Withdrawal symptoms Noted with hypokalemia Plan: Continue detox Hypokalemia: K Dur 40 meq PO x 1 dose, repeat K level in AM
[2017-07-31] MEDS ORDERED: POTASSIUM CHLORIDE TABS 20 MEQ TABLET.ER (FP) PO ONE (16:48)
[2017-07-31] MEDS: LOPERAMIDE HCL 2 MG CAPSULE PO PRN (17:25)
[2017-07-31] MEDS: THIAMINE HCL 100 MG TABLET (FP) PO SCH (22:25)
[2017-07-31] MEDS: chlordiazePOXIDE 5 MG CAPSULE PO SCH (22:25)
[2017-07-31] MEDS: hydrOXYzine PAMOATE 50 MG CAPSULE (FP) PO PRN (22:27)
[2017-08-01] MEDS: chlordiazePOXIDE 5 MG CAPSULE PO SCH ×3 (05:19→17:43)
[2017-08-01] MEDS: NICOTINE 21 MG/24 HOURS TOPICAL PATCH TD SCH (10:23)
[2017-08-01] MEDS: PRENATAL VITAMINS W/ FOLIC ACID TABLET (FP) PO SCH (10:23)
[2017-08-01] MEDS: CLOTRIMAZOLE/BETAMET DIPROP TOPICAL CREAM 45 GM TUBE TP SCH ×2 (10:24→22:21)
[2017-08-01] MEDS: LOPERAMIDE HCL 2 MG CAPSULE PO PRN (17:45)
[2017-08-01] MEDS: hydrOXYzine PAMOATE 50 MG CAPSULE (FP) PO PRN (22:20)
[2017-08-01] MEDS: THIAMINE HCL 100 MG TABLET (FP) PO SCH (22:20)
[2017-08-01] MEDS: chlordiazePOXIDE HCL 10 MG CAPSULE PO SCH (22:21)
--- NOTE | 2017-08-01 22:54 | PN ---
[facility] Progress Note (SOAP) Subjective: diarrhea shakes Objective: 08/01/17 22:52 ambulates with a cane A & O x 3 Laboratory Last Values WBC 6.4 K/mm3 (4.0-10.0) 07/30/17 07:00 RBC 4.44 M/mm3 (4.00-5.60) 07/30/17 07:00 Hgb 13.6 GM/dL (11.7-16.9) D 07/30/17 07:00 Hct 41.7 % (35.4-49) D 07/30/17 07:00 MCV 93.9 fl (80-96) 07/30/17 07:00 MCH 30.6 pg (25.7-33.7) 07/30/17 07:00 MCHC 32.6 g/dl (32.0-35.9) 07/30/17 07:00 RDW 14.2 % (11.9-15.9) 07/30/17 07:00 Plt Count 230 K/MM3 (134-434) 07/30/17 07:00 MPV 7.6 fl (7.5-11.1) 07/30/17 07:00 Sodium 138 mmol/L (136-145) 07/30/17 07:00 Potassium 4.0 mmol/L (3.5-5.1) D 08/01/17 08:00 Chloride 102 mmol/L (98-107) 07/30/17 07:00 Carbon Dioxide 26 mmol/L (21-32) 07/30/17 07:00 Anion Gap 10 (8-16) 07/30/17 07:00 BUN 10 mg/dL (7-18) 07/30/17 07:00 Creatinine 0.6 mg/dL (0.7-1.3) L 07/30/17 07:00 Creat Clearance w eGFR > 60 (>60) 07/30/17 07:00 Random Glucose 94 mg/dL (74-106) D 07/30/17 07:00 Calcium 7.5 mg/dL (8.5-10.1) L 07/30/17 07:00 Total Bilirubin 0.7 mg/dL (0.2-1.0) D 07/30/17 07:00 AST 22 U/L (15-37) 07/30/17 07:00 ALT 19 U/L (12-78) 07/30/17 07:00 Alkaline Phosphatase 132 U/L (45-117) H 07/30/17 07:00 Total Protein 6.4 g/dl (6.4-8.2) 07/30/17 07:00 Albumin 3.2 g/dl (3.4-5.0) L 07/30/17 07:00 RPR Titer Nonreactive (NONREACTIVE) 07/30/17 07:00 labs noted Assessment: 08/01/17 22:53 withdrawal sx Plan: continue detox
[2017-08-02] MEDS: chlordiazePOXIDE HCL 10 MG CAPSULE PO SCH (05:42)
[2017-08-02 06:04] VITALS: BP 138/74; PULSE 76; TEMP 96.8
--- NOTE | 2017-08-02 08:59 | DS ---
[facility] Detox Discharge Summary Admission Date: 07/29/17 Discharge Date: 08/02/17 - History Additional Comments: Pt sister is here to pick him up. Pt stated he will do out patient rehab and AA meeting near his sister's place in [place]. Pt was A & O x 3 and in gooid spirits Pertinent Past History: HTN Scabies exposure - Physical Exam Results Vital Signs: Vital Signs Temperature 96.8 F L 08/02/17 06:03 Pulse Rate 76 08/02/17 06:03 Respiratory Rate 16 08/02/17 06:03 Blood Pressure 138/74 08/02/17 06:03 O2 Sat by Pulse Oximetry (%) Pertinent Admission Physical Exam Findings: withdrawal sx - Treatment Hospital Course: Detox Protocol Followed, Detoxed Safely, Responded well, Discharged Condition Good, Rehab Referral Accepted Patient has Accepted a Rehab Referral to: O/[facility] aftercare and AA meetings at [place] - Medication Discharge Medications: Ambulatory Orders NK [No Known Home Medication] 11/22/16 - Diagnosis (1) Alcohol dependence with uncomplicated withdrawal Status: Acute (2) Hypokalemia Status: Acute (3) Scabies exposure Status: Acute (4) HTN (hypertension) Status: Chronic Qualifiers: Hypertension type: essential hypertension (5) Nicotine dependence Status: Chronic Qualifiers: Nicotine product type: cigarettes Substance use status: in withdrawal Qualified Code(s): F17.213 - Nicotine dependence, cigarettes, with withdrawal (6) Alcohol-induced mood disorder Status: Acute - AMA Did Patient Leave Against Medical Advice: No
== END 2017-08-02 08:52 | disposition home or self-care (01) | DRG 775 ==
LOC: YASAS 12:43 → Y3N 17:02
PROVIDERS: ADMIT Internal Medicine; ATTEND Internal Medicine
PROC: HZ2ZZZZ Detoxification Services for Substance Abuse Treatment (ICD-10-PCS; principal; 2017-07-29)
DX: F10.230 Alcohol dependence with withdrawal, uncomplicated (principal); F10.24 Alcohol dependence with alcohol-induced mood disorder; F17.213 Nicotine dependence, cigarettes, with withdrawal; I10 Essential (primary) hypertension; E87.6 Hypokalemia; Z20.7 Contact with and (suspected) exposure to pediculosis, acariasis and other infestations; Z88.0 Allergy status to penicillin; Z86.69 Personal history of other diseases of the nervous system and sense organs
CPT/HCPCS: 36415; 80053; 84132; 85027; 86593; 93005; 93010

== ENCOUNTER 2019-04-11 14:50 | Inpatient (IN) | payer OTHER ==
[2019-04-11 16:00] VITALS: BMI 20.9
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
--- NOTE | 2019-04-11 17:13 | PN ---
Teaching Attending Note Name of Resident: Annette Crum ATTENDING PHYSICIAN STATEMENT I saw and evaluated the patient. I reviewed the resident's note and discussed the case with the resident. I agree with the resident's findings and plan as documented. SUBJECTIVE: 63 y.o. male requesting detox from etoh use , 3-4 pints vodka daily , first age of use 10 , h/o seizures most recently a few days ago.reports he fell while intoxicated and hit his head , + LOC , taken by [facility] to hospital, pt left AMA , now c/o MOJICA , blurry vision., dizziness , LBP . OBJECTIVE: wnwd , ambulating limping to the left , reports old injury to back and R LE frx Vital Signs - 24 hr 04/11/19 15:49 Temperature 96.8 F L Pulse Rate 85 Respiratory 20 Rate Blood Pressure 140/87 ASSESSMENT AND PLAN: Alcohol dependence s/p fall w/ LOC / head injury - transfer to [facility] ED . Report by PGY -1 resident
--- NOTE | 2019-04-12 02:51 | HP ---
CIWA Score Nausea/Vomitin-No Nausea/No Vomiting Muscle Tremors: 4-Moderate,w/Arms Extend Anxiety: 4-Mod. Anxious/Guarded Agitation: 1-Slight > Activity Paroxysmal Sweats: 1-Minimal Palms Moist Orientation: 1-Uncertain about Date Tacttile Disturbances: 3-Moderate Itch/Numb/Burn Auditory Disturbances: 0-None Visual Disturbances: 0-None Headache: 2-Mild CIWA-Ar Total Score: 16 - Admission Criteria OASAS Guidelines: Admission for Medically Managed Detox: Requires at least one of the followin. CIWA greater than 12 2. Seizures within the past 24 hours 3. Delirium tremens within the past 24 hours 4. Hallucinations within the past 24 hours 5. Acute intervention needed for co occurring medical disorder 6. Acute intervention needed for co occurring psychiatric disorder 7. Severe withdrawal that cannot be handled at a lower level of care (continued vomiting, continued diarrhea, abnormal vital signs) requiring intravenous medication and/or fluids 8. 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 Cardiovascular: Yes: HTN - Smoking History Smoking history: Current some day smoker Have you smoked in the past 12 months: Yes Aproximately how many cigarettes per day: 3 - Alcohol/Substance Use Hx Alcohol Use: Yes Admission ROS [facility] - HPI Allergies/Adverse Reactions: Allergies Allergy/AdvReac Type Severity Reaction Status Date / Time Penicillins Allergy Severe Elevated Verified 04/11/19 19:09 Blood Pressure - Ebola screening Have you traveled outside of the country in the last 21 days: No Have you had contact with anyone from an Ebola affected area: No Patient History - Patient Medical History Hx Anemia: No Hx Asthma: No Hx Chronic Obstructive Pulmonary Disease (COPD): No Hx Cancer: No Hx Cardiac Disorders: No Hx Congestive Heart Failure: No Hx Hypertension: Yes (not on meds.) Hx Hypercholesterolemia: No Hx Pacemaker: No HX Cerebrovascular Accident: No Hx Seizures: Yes (etoh related seizures last 1 week.) Hx Dementia: No Hx Diabetes: No Hx Gastrointestinal Disorders: No Hx Liver Disease: No Hx Genitourinary Disorders: No Hx Sexually Transmitted Disorders: No Hx Renal Disease (ESRD): No Hx Thyroid Disease: No Hx Human Immunodeficiency Virus (HIV): No Hx Hepatitis C: No Hx Depression: No Hx Suicide Attempt: No Hx Bipolar Disorder: No Hx Schizophrenia: No - Patient Surgical History Past Surgical History: Yes Hx Neurologic Surgery: No Hx Cataract Extraction: No Hx Cardiac Surgery: No Hx Lung Surgery: No Hx Breast Surgery: No Hx Breast Biopsy: No Hx Abdominal Surgery: No Hx Appendectomy: No Hx Cholecystectomy: No Hx Genitourinary Surgery: No Hx Section: No Hx Orthopedic Surgery: No (FX OF R TIBIA/FIBULA) Other Surgical History: R ear sx Anesthesia Reaction: No - PPD History Date: 07/31/17 Results: 0 MM - Smoking Cessation Smoking history: Current some day smoker Have you smoked in the past 12 months: Yes Aproximately how many cigarettes per day: 3 Cigars Per Day: 0 Hx Chewing Tobacco Use: No - Substances abused Alcohol Substance route: Oral Frequency: Daily Amount used: 2-3 Pint of vodka and whiskey Age of first use: 10 Date of last use: 04/10/19 Admission Physical Exam [facility] - Vital Signs Vital Signs: Vital Signs - 24 hr 04/11/19 04/12/19 15:49 02:38 Temperature 96.8 F L 97.7 F Pulse Rate 85 74 Respiratory 20 18 Rate Blood Pressure 140/87 112/82 Breathalyzer - Breathalyzer Breathalyzer: 0 Urine Drug Screen - Test Device Lot number: [id number] Expiration date: 12/18/20 - Control Is test valid?: Yes - Results Drug screen NEGATIVE: No Urine drug screen results: BZO-Benzodiazepines
--- NOTE | 2019-04-12 02:53 | HP ---
CIWA Score Nausea/Vomitin-No Nausea/No Vomiting Muscle Tremors: 4-Moderate,w/Arms Extend Anxiety: 4-Mod. Anxious/Guarded Agitation: 1-Slight > Activity Paroxysmal Sweats: 1-Minimal Palms Moist Orientation: 1-Uncertain about Date Tacttile Disturbances: 3-Moderate Itch/Numb/Burn Auditory Disturbances: 0-None Visual Disturbances: 0-None Headache: 2-Mild CIWA-Ar Total Score: 16 - Admission Criteria OASAS Guidelines: Admission for Medically Managed Detox: Requires at least one of the followin. CIWA greater than 12 2. Seizures within the past 24 hours 3. Delirium tremens within the past 24 hours 4. Hallucinations within the past 24 hours 5. Acute intervention needed for co occurring medical disorder 6. Acute intervention needed for co occurring psychiatric disorder 7. Severe withdrawal that cannot be handled at a lower level of care (continued vomiting, continued diarrhea, abnormal vital signs) requiring intravenous medication and/or fluids 8. Admitting History and Physical - Past Medical History [employer]: Yes: Seizure Cardiovascular: Yes: HTN - Smoking History Smoking history: Current some day smoker Have you smoked in the past 12 months: Yes Aproximately how many cigarettes per day: 3 - Alcohol/Substance Use Hx Alcohol Use: Yes Admission ROS [facility] Chief Complaint: Alcohol withdrawal symptoms Allergies/Adverse Reactions: Allergies Allergy/AdvReac Type Severity Reaction Status Date / Time Penicillins Allergy Severe Elevated Verified 04/11/19 19:09 Blood Pressure History of Present Illness: Patent was sent to emergency room for medial clearance status post a fall. Patient had reported that he fell while seeking for admission yesterday. He was seen at ER for evaluation of the fall. CT scan of the head was negative. He denies headache, blurry vision and dizziness at this time. He reports medical history of hypertension and seizures. Denies suicidal ideation at this time Exam Limitations: Clinical Condition - Ebola screening Have you traveled outside of the country in the last 21 days: No Have you had contact with anyone from an Ebola affected area: No - Review of Systems Constitutional: Malaise, Weakness EENT: reports: No Symptoms Reported Respiratory: reports: No Symptoms reported Cardiac: reports: No Symptoms Reported GI: reports: Nausea, Poor Appetite, Poor Fluid Intake, Vomiting, Abdominal cramping : reports: No Symptoms Reported Musculoskeletal: reports: Back Pain Integumentary: reports: [place] Neuro: reports: No Symptoms reported Endocrine: reports: No Symptoms Reported Hematology: reports: No Symptoms Reported Psychiatric: reports: Mood/Affect Appropiate, Orientated x3, Anxious Other Systems: Reviewed and Negative Patient History - Patient Medical History Hx Anemia: No Hx Asthma: No Hx Chronic Obstructive Pulmonary Disease (COPD): No Hx Cancer: No Hx Cardiac Disorders: No Hx Congestive Heart Failure: No Hx Hypertension: Yes (not on meds.) Hx Hypercholesterolemia: No Hx Pacemaker: No HX Cerebrovascular Accident: No Hx Seizures: Yes (etoh related seizures last 1 week.) Hx Dementia: No Hx Diabetes: No Hx Gastrointestinal Disorders: No Hx Liver Disease: No Hx Genitourinary Disorders: No Hx Sexually Transmitted Disorders: No Hx Renal Disease (ESRD): No Hx Thyroid Disease: No Hx Human Immunodeficiency Virus (HIV): No Hx Hepatitis C: No Hx Depression: No Hx Suicide Attempt: No Hx Bipolar Disorder: No Hx Schizophrenia: No - Patient Surgical History Past Surgical History: Yes Hx Neurologic Surgery: No Hx Cataract Extraction: No Hx Cardiac Surgery: No Hx Lung Surgery: No Hx Breast Surgery: No Hx Breast Biopsy: No Hx Abdominal Surgery: No Hx Appendectomy: No Hx Cholecystectomy: No Hx Genitourinary Surgery: No Hx Section: No Hx Orthopedic Surgery: No (FX OF R TIBIA/FIBULA) Other Surgical History: R ear sx Anesthesia Reaction: No - PPD History Previous Implant?: Yes Documented Results: Negative w/proof Implanted On Prior [facility] Admission?: Yes Date: 07/31/17 Results: 0 MM PPD to be Administered?: Yes - Smoking Cessation Smoking history: Current some day smoker Have you smoked in the past 12 months: Yes Aproximately how many cigarettes per day: 3 Cigars Per Day: 0 Hx Chewing Tobacco Use: No Initiated information on smoking cessation: Yes 'Breaking Loose' booklet given: 04/12/19 - Substance & Tx. History Hx Alcohol Use: Yes Hx Substance Use: No Substance Use Type: Alcohol Hx Substance Use Treatment: Yes ([facility]) - Substances abused Alcohol Substance route: Oral Frequency: Daily Amount used: 2-3 Pint of vodka and whiskey Age of first use: 10 Date of last use: 04/10/19 Admission Physical Exam BHS - Vital Signs Vital Signs: Vital Signs - 24 hr 04/11/19 04/12/19 15:49 02:38 Temperature 96.8 F L 97.7 F Pulse Rate 85 74 Respiratory 20 18 Rate Blood Pressure 140/87 112/82 - Physical General Appearance: Yes: Moderate Distress HEENTM: Yes: Within Normal Limits, Normocephalic, Normal Voice Respiratory: Yes: Lungs Clear, Normal Breath Sounds, No Respiratory Distress Neck: Yes: Supple Breast: Yes: Breast Exam Deferred Cardiology: Yes: Regular Rhythm, Regular Rate Abdominal: Yes: Normal Bowel Sounds Genitourinary: Yes: Within Normal Limits Back: Yes: Normal Inspection Musculoskeletal: Yes: Within Normal Limits Extremities: Yes: Normal Inspection Neurological: Yes: Within Normal Limits, Fully Oriented, Alert, Normal Mood/ Affect Integumentary: Yes: Warm - Diagnostic (1) Alcohol dependence with uncomplicated withdrawal Current Visit: Yes Status: Acute (2) Fall Current Visit: Yes Status: Chronic (3) Traumatic hematoma of head Current Visit: Yes Status: Chronic Qualifiers: Encounter type: sequela Qualified Code(s): S00.93XS - Contusion of unspecified part of head, sequela (4) HTN (hypertension) Current Visit: No Status: Chronic Qualifiers: Hypertension type: essential hypertension Qualified Code(s): I10 - Essential (primary) hypertension Cleared for Admission BHS - Detox or Rehab S Level of Care: Medically Managed Detox Regimen/Protocol: Librium Breathalyzer - Breathalyzer Breathalyzer: 0 Urine Drug Screen - Test Device Lot number: [id number] Expiration date: 12/18/20 - Control Is test valid?: Yes - Results Drug screen NEGATIVE: No Urine drug screen results: BZO-Benzodiazepines Inpatient Rehab Admission - Rehab Decision to Admit Inpatient rehab admission?: No
[2019-04-12] MEDS ORDERED: MAGNESIUM HYDROX 2400MG/30ML ORAL SUSPENSION 30 ML CUP PO PRN (03:09)
[2019-04-12] MEDS ORDERED: BISMUTH SUBSALICYLATE 524 MG/30 ML UD PO PRN (03:09)
[2019-04-12] MEDS ORDERED: chlordiazePOXIDE HCL 25 MG CAPSULE PO PRN (03:09)
[2019-04-12] MEDS ORDERED: hydrOXYzine PAMOATE 25 MG CAPSULE (FP) PO PRN (03:09)
[2019-04-12] MEDS ORDERED: ACETAMINOPHEN 325 MG TABLET (FP) PO PRN (03:09)
[2019-04-12] MEDS ORDERED: MENTHOL/PHENOL 1 EACH UD MM PRN (03:09)
[2019-04-12] MEDS ORDERED: NICOTINE POLACRILEX 2 MG GUM BUC PRN (03:09)
[2019-04-12] MEDS ORDERED: MAG HYDROX/AL HYDROX/SIMETH 30 ML UNIT-DOSE CUP PO PRN (03:09)
[2019-04-12] MEDS ORDERED: MAGNESIUM CITRATE 300 ML BOTTLE PO PRN (03:09)
--- NOTE | 2019-04-12 10:36 | PN ---
S CIWA - CIWA Score Nausea/Vomitin-Mild Nausea/No Vomiting Muscle Tremors: 1-None Visible, but [place] Anxiety: 2 Agitation: 2 Paroxysmal Sweats: No Perspiration Orientation: 0-Oriented Tacttile Disturbances: 1-Very Mild Itch/Numbness Auditory Disturbances: 0-None Visual Disturbances: 0-None Headache: 1-Very Mild CIWA-Ar Total Score: 8 BHS Progress Note (SOAP) Subjective: alert,irritable,anxious,interrupted sleep,pain in the body Objective: 04/12/19 10:34 Vital Signs Temperature 98.1 F 04/12/19 09:05 Pulse Rate 90 04/12/19 09:05 Respiratory Rate 16 04/12/19 09:05 Blood Pressure 142/87 04/12/19 09:05 O2 Sat by Pulse Oximetry (%) Assessment: 04/12/19 10:35 withdrawal symptom Plan: continue detox librium regimen
[2019-04-12] MEDS: PRENATAL VITAMINS W/ FOLIC ACID TABLET (FP) PO SCH (10:50)
[2019-04-12] MEDS: chlordiazePOXIDE HCL 25 MG CAPSULE PO SCH ×3 (10:51→22:17)
[2019-04-12] MEDS: NICOTINE 14 MG/24 HOURS TOPICAL PATCH TD SCH (10:54)
[2019-04-12] MEDS: THIAMINE HCL 100 MG TABLET (FP) PO SCH (22:17)
[2019-04-13] MEDS: chlordiazePOXIDE HCL 25 MG CAPSULE PO SCH ×4 (05:29→22:35)
--- NOTE | 2019-04-13 09:54 | PN ---
S CIWA - CIWA Score Nausea/Vomitin-Mild Nausea/No Vomiting Muscle Tremors: 1-None Visible, but [place] Anxiety: 2 Agitation: 2 Paroxysmal Sweats: No Perspiration Orientation: 0-Oriented Tacttile Disturbances: 1-Very Mild Itch/Numbness Auditory Disturbances: 0-None Visual Disturbances: 0-None Headache: 1-Very Mild CIWA-Ar Total Score: 8 BHS Progress Note (SOAP) Subjective: alert,irritable,anxious,interrupted sleep,pain in the body, Objective: 04/13/19 09:52 Vital Signs Temperature 96.3 F L 04/13/19 09:35 Pulse Rate 92 H 04/13/19 09:35 Respiratory Rate 18 04/13/19 09:35 Blood Pressure 126/77 04/13/19 09:35 O2 Sat by Pulse Oximetry (%) 04/13/19 09:53 labs pending Assessment: 04/13/19 09:53 withdrawal symptom Plan: continue detox librium regimen,ambulation with cane
[2019-04-13 10:01] LABS: HEMATOCRIT 38.7 % (35.4-49); HEMOGLOBIN 13.1 GM/dL (11.7-16.9); MCH 31.5 pg (25.7-33.7); MCHC 33.8 g/dl (32.0-35.9); MEAN CELL VOLUME 93.1 fl (80-96); MEAN PLT VOLUME 7.8 fl (7.5-11.1); PLATELET COUNT 346 K/MM3 (134-434); RBC 4.15 M/mm3 (4.00-5.60); RDW 15.2 % (11.9-15.9); WHITE BLOOD COUNT 6.7 K/mm3 (4.0-10.0)
[2019-04-13 10:10] LABS: ALBUMIN 3.6 g/dl (3.4-5.0); BILIRUBIN,TOTAL 0.5 mg/dL (0.2-1); BLOOD UREA NITROGEN 14.7 mg/dL (7-18); CALCIUM 8.7 mg/dL (8.5-10.1); CREATININE 0.9 mg/dL (0.55-1.3); POTASSIUM 4.2 mmol/L (3.5-5.1); TOT PROT 6.7 g/dl (6.4-8.2)
[2019-04-13] MEDS: NICOTINE 14 MG/24 HOURS TOPICAL PATCH TD SCH (10:10)
[2019-04-13] MEDS: PRENATAL VITAMINS W/ FOLIC ACID TABLET (FP) PO SCH (10:11)
[2019-04-13] MEDS: METHOCARBAMOL 500 MG TABLET PO PRN ×2 (10:12→22:36)
[2019-04-13] MEDS: THIAMINE HCL 100 MG TABLET (FP) PO SCH (22:35)
[2019-04-14] MEDS: chlordiazePOXIDE HCL 25 MG CAPSULE PO SCH ×4 (05:36→22:16)
[2019-04-14] MEDS: IBUPROFEN 400 MG TABLET (FP) PO PRN ×3 (05:37→22:19)
--- NOTE | 2019-04-14 09:55 | PN ---
[facility] CIWA - CIWA Score Nausea/Vomitin-No Nausea/No Vomiting Muscle Tremors: 1-None Visible, but [place] Anxiety: 2 Agitation: 2 Paroxysmal Sweats: No Perspiration Orientation: 0-Oriented Tacttile Disturbances: 1-Very Mild Itch/Numbness Auditory Disturbances: 0-None Visual Disturbances: 0-None Headache: 1-Very Mild CIWA-Ar Total Score: 7 BHS Progress Note (SOAP) Subjective: alert,irritable,anxious,interrupted sleep,pain in the body Objective: 04/14/19 09:53 Vital Signs Temperature 98.1 F 04/14/19 09:17 Pulse Rate 98 H 04/14/19 09:17 Respiratory Rate 18 04/14/19 09:17 Blood Pressure 129/81 04/14/19 09:17 O2 Sat by Pulse Oximetry (%) 04/14/19 09:53 Laboratory Last Values WBC 6.7 K/mm3 (4.0-10.0) 04/13/19 08:15 RBC 4.15 M/mm3 (4.00-5.60) 04/13/19 08:15 Hgb 13.1 GM/dL (11.7-16.9) 04/13/19 08:15 Hct 38.7 % (35.4-49) 04/13/19 08:15 MCV 93.1 fl (80-96) 04/13/19 08:15 MCH 31.5 pg (25.7-33.7) 04/13/19 08:15 MCHC 33.8 g/dl (32.0-35.9) 04/13/19 08:15 RDW 15.2 % (11.9-15.9) 04/13/19 08:15 Plt Count 346 K/MM3 (134-434) 04/13/19 08:15 MPV 7.8 fl (7.5-11.1) D 04/13/19 08:15 Sodium 133 mmol/L (136-145) L 04/13/19 08:15 Potassium 4.2 mmol/L (3.5-5.1) 04/13/19 08:15 Chloride 101 mmol/L (98-107) 04/13/19 08:15 Carbon Dioxide 24 mmol/L (21-32) 04/13/19 08:15 Anion Gap 8 MMOL/L (8-16) 04/13/19 08:15 BUN 14.7 mg/dL (7-18) 04/13/19 08:15 Creatinine 0.9 mg/dL (0.55-1.3) 04/13/19 08:15 Est GFR (CKD-EPI)AfAm 104.24 04/13/19 08:15 Est GFR (CKD-EPI)NonAf 89.94 04/13/19 08:15 Random Glucose 102 mg/dL (74-106) 04/13/19 08:15 Calcium 8.7 mg/dL (8.5-10.1) 04/13/19 08:15 Total Bilirubin 0.5 mg/dL (0.2-1) 04/13/19 08:15 AST 14 U/L (15-37) L 04/13/19 08:15 ALT 16 U/L (13-61) 04/13/19 08:15 Alkaline Phosphatase 110 U/L (45-117) 04/13/19 08:15 Total Protein 6.7 g/dl (6.4-8.2) 04/13/19 08:15 Albumin 3.6 g/dl (3.4-5.0) 04/13/19 08:15 RPR Titer Nonreactive (NONREACTIVE) 04/13/19 08:15 Assessment: 04/14/19 09:54 withdrawal symptom Plan: continue detox librium regimen,ambulation with cane
[2019-04-14] MEDS: PRENATAL VITAMINS W/ FOLIC ACID TABLET (FP) PO SCH (10:56)
[2019-04-14] MEDS: NICOTINE 14 MG/24 HOURS TOPICAL PATCH TD SCH (10:57)
[2019-04-14] MEDS: METHOCARBAMOL 500 MG TABLET PO PRN (18:05)
[2019-04-14] MEDS: THIAMINE HCL 100 MG TABLET (FP) PO SCH (22:16)
[2019-04-14] MEDS: MELATONIN 5 MG TABLETS PO PRN (22:20)
[2019-04-15] MEDS ORDERED: chlordiazePOXIDE HCL 10 MG CAPSULE PO PRN
[2019-04-15] MEDS: chlordiazePOXIDE HCL 10 MG CAPSULE PO SCH ×4 (05:50→22:13)
[2019-04-15] MEDS: IBUPROFEN 400 MG TABLET (FP) PO PRN (05:51)
[2019-04-15] MEDS: PRENATAL VITAMINS W/ FOLIC ACID TABLET (FP) PO SCH (10:16)
[2019-04-15] MEDS: NICOTINE 14 MG/24 HOURS TOPICAL PATCH TD SCH (10:16)
--- NOTE | 2019-04-15 10:44 | PN ---
S CIWA - CIWA Score Nausea/Vomitin-No Nausea/No Vomiting Muscle Tremors: 2 Anxiety: 2 Agitation: 0-Normal Activity Paroxysmal Sweats: 2 Orientation: 0-Oriented Tacttile Disturbances: 0-None Auditory Disturbances: 0-None Visual Disturbances: 0-None Headache: 1-Very Mild CIWA-Ar Total Score: 7 BHS Progress Note (SOAP) Subjective: c/o headache, sweats, and anxiety. Objective: 04/15/19 10:42 Vital Signs 04/15/19 04/15/19 03:30 06:17 Temperature 96.6 F L Pulse Rate 78 Respiratory 18 18 Rate Blood Pressure 128/76 Assessment: 04/15/19 10:43 AOX3, in no acute respiratory distress. Full ROM, ambulating in the unit. withdrawal symptoms. Plan: continue detox.
[2019-04-15] MEDS: METHOCARBAMOL 500 MG TABLET PO PRN (17:21)
[2019-04-15] MEDS: THIAMINE HCL 100 MG TABLET (FP) PO SCH (22:13)
[2019-04-16] MEDS: METHOCARBAMOL 500 MG TABLET PO PRN ×3 (00:24→17:28)
[2019-04-16] MEDS: chlordiazePOXIDE HCL 10 MG CAPSULE PO SCH ×2 (06:16→17:27)
[2019-04-16] MEDS: ACETAMINOPHEN 325 MG TABLET (FP) PO PRN (10:14)
[2019-04-16] MEDS: NICOTINE 14 MG/24 HOURS TOPICAL PATCH TD SCH (10:15)
[2019-04-16] MEDS: PRENATAL VITAMINS W/ FOLIC ACID TABLET (FP) PO SCH (10:15)
--- NOTE | 2019-04-16 11:45 | PN ---
S CIWA - CIWA Score Nausea/Vomitin-No Nausea/No Vomiting Muscle Tremors: None Anxiety: 2 Agitation: 2 Paroxysmal Sweats: No Perspiration Orientation: 0-Oriented Tacttile Disturbances: 0-None Auditory Disturbances: 0-None Visual Disturbances: 0-None Headache: 0-None Present CIWA-Ar Total Score: 4 BHS Progress Note (SOAP) Subjective: Back pain, chills, tremor, interrupted sleep Objective: 04/16/19 11:41 Last Vital Signs Temp Pulse Resp BP Pulse Ox 97.9 F 99 H 16 126/79 04/16/19 09:28 04/16/19 09:28 04/16/19 09:28 04/16/19 09:28 Laboratory Tests 04/13/19 04/13/19 04/13/19 08:15 08:15 08:15 WBC 6.7 RBC 4.15 Hgb 13.1 Hct 38.7 MCV 93.1 MCH 31.5 MCHC 33.8 RDW 15.2 Plt Count 346 MPV 7.8 D Sodium 133 L Potassium 4.2 Chloride 101 Carbon Dioxide 24 Anion Gap 8 BUN 14.7 Creatinine 0.9 Est GFR (CKD-EPI)AfAm 104.24 Est GFR (CKD-EPI)NonAf 89.94 Random Glucose 102 Calcium 8.7 Total Bilirubin 0.5 AST 14 L ALT 16 Alkaline Phosphatase 110 Total Protein 6.7 Albumin 3.6 RPR Titer Nonreactive Labs reviewed: sodium 133 (low) Assessment: 04/16/19 11:43 Withdrawal sxs Noted with hyponatremia Plan: Continue detox Patient is scheduled for discharge tomorrow Hyponatremia, mild: asymptomatic, continue diet, follow up with PCP for monitoring
[2019-04-16] MEDS: IBUPROFEN 400 MG TABLET (FP) PO PRN (19:55)
[2019-04-16] MEDS: THIAMINE HCL 100 MG TABLET (FP) PO SCH (22:21)
[2019-04-16] MEDS: MELATONIN 5 MG TABLETS PO PRN (22:22)
[2019-04-17] MEDS ORDERED: chlordiazePOXIDE HCL 10 MG CAPSULE PO ONE (05:00)
[2019-04-17] MEDS: ACETAMINOPHEN 325 MG TABLET (FP) PO PRN (06:00)
[2019-04-17 09:34] VITALS: BP 124/75; PULSE 87; TEMP 98.3
[2019-04-17] MEDS: PRENATAL VITAMINS W/ FOLIC ACID TABLET (FP) PO SCH (10:18)
[2019-04-17] MEDS: NICOTINE 14 MG/24 HOURS TOPICAL PATCH TD SCH (10:18)
--- NOTE | 2019-04-17 13:59 | PN ---
[facility] CIWA - CIWA Score Nausea/Vomitin-No Nausea/No Vomiting Muscle Tremors: 1-None Visible, but [place] Anxiety: 1-Mildly Anxious Agitation: 1-Slight > Activity Paroxysmal Sweats: No Perspiration Orientation: 0-Oriented Tacttile Disturbances: 0-None Auditory Disturbances: 0-None Visual Disturbances: 0-None Headache: 0-None Present CIWA-Ar Total Score: 3 BHS Progress Note (SOAP) Subjective: alert,no complaint Objective: 04/17/19 13:59 Vital Signs Temperature 98.3 F 04/17/19 09:34 Pulse Rate 87 04/17/19 09:34 Respiratory Rate 16 04/17/19 09:34 Blood Pressure 124/75 04/17/19 09:34 O2 Sat by Pulse Oximetry (%) Assessment: 04/17/19 13:59 detox completed,no withdrawal symptom Plan: discharge today,follow up with rehab
--- NOTE | 2019-04-17 14:05 | DS ---
[facility] Detox Discharge Summary Admission Date: 04/12/19 Discharge Date: 04/17/19 - History Present History: Alcohol Dependence Additional Comments: follow up with [facility] today for further level of care Pertinent Past History: hypertension history of head injury history of fall ambulation with cane - Physical Exam Results Vital Signs: Vital Signs Temperature 98.3 F 04/17/19 09:34 Pulse Rate 87 04/17/19 09:34 Respiratory Rate 16 04/17/19 09:34 Blood Pressure 124/75 04/17/19 09:34 O2 Sat by Pulse Oximetry (%) Pertinent Admission Physical Exam Findings: withdrawal signs and symptom Laboratory Last Values WBC 6.7 K/mm3 (4.0-10.0) 04/13/19 08:15 RBC 4.15 M/mm3 (4.00-5.60) 04/13/19 08:15 Hgb 13.1 GM/dL (11.7-16.9) 04/13/19 08:15 Hct 38.7 % (35.4-49) 04/13/19 08:15 MCV 93.1 fl (80-96) 04/13/19 08:15 MCH 31.5 pg (25.7-33.7) 04/13/19 08:15 MCHC 33.8 g/dl (32.0-35.9) 04/13/19 08:15 RDW 15.2 % (11.9-15.9) 04/13/19 08:15 Plt Count 346 K/MM3 (134-434) 04/13/19 08:15 MPV 7.8 fl (7.5-11.1) D 04/13/19 08:15 Sodium 133 mmol/L (136-145) L 04/13/19 08:15 Potassium 4.2 mmol/L (3.5-5.1) 04/13/19 08:15 Chloride 101 mmol/L (98-107) 04/13/19 08:15 Carbon Dioxide 24 mmol/L (21-32) 04/13/19 08:15 Anion Gap 8 MMOL/L (8-16) 04/13/19 08:15 BUN 14.7 mg/dL (7-18) 04/13/19 08:15 Creatinine 0.9 mg/dL (0.55-1.3) 04/13/19 08:15 Est GFR (CKD-EPI)AfAm 104.24 04/13/19 08:15 Est GFR (CKD-EPI)NonAf 89.94 04/13/19 08:15 Random Glucose 102 mg/dL (74-106) 04/13/19 08:15 Calcium 8.7 mg/dL (8.5-10.1) 04/13/19 08:15 Total Bilirubin 0.5 mg/dL (0.2-1) 04/13/19 08:15 AST 14 U/L (15-37) L 04/13/19 08:15 ALT 16 U/L (13-61) 04/13/19 08:15 Alkaline Phosphatase 110 U/L (45-117) 04/13/19 08:15 Total Protein 6.7 g/dl (6.4-8.2) 04/13/19 08:15 Albumin 3.6 g/dl (3.4-5.0) 04/13/19 08:15 RPR Titer Nonreactive (NONREACTIVE) 04/13/19 08:15 - Treatment Hospital Course: Detox Protocol Followed, Detoxed Safely, Responded well, Discharged Condition Good, Rehab Referral Accepted Patient has Accepted a Rehab Referral to: [facility] - Medication Discharge Medications: Ambulatory Orders NK [No Known Home Medication] 11/22/16 - Diagnosis (1) Alcohol dependence with uncomplicated withdrawal Current Visit: Yes Status: Acute (2) Fall Current Visit: Yes Status: Chronic (3) Traumatic hematoma of head Current Visit: Yes Status: Chronic Qualifiers: Encounter type: sequela Qualified Code(s): S00.93XS - Contusion of unspecified part of head, sequela - AMA Did Patient Leave Against Medical Advice: No
== END 2019-04-17 14:30 | disposition other institution (70) | DRG 775 ==
LOC: YASAS 14:50 → Y6N 04-12 02:30
PROVIDERS: ADMIT Allergy & Immunology; ATTEND Allergy & Immunology
PROC: HZ2ZZZZ Detoxification Services for Substance Abuse Treatment (ICD-10-PCS; principal; 2019-04-12)
DX: F10.230 Alcohol dependence with withdrawal, uncomplicated (principal); F17.210 Nicotine dependence, cigarettes, uncomplicated; I10 Essential (primary) hypertension; E87.1 Hypo-osmolality and hyponatremia; S00.93XS Contusion of unspecified part of head, sequela; W19.XXXS Unspecified fall, sequela; Z88.0 Allergy status to penicillin; Z86.69 Personal history of other diseases of the nervous system and sense organs
CPT/HCPCS: 36415; 80053; 85027; 86593

== ENCOUNTER 2019-04-11 18:57 | Emergency (ER) | payer OTHER ==
[2019-04-11 19:12] VITALS: BMI 21.6
--- NOTE | 2019-04-11 20:02 | PDOC ---
Attending Attestation - Resident Resident Name: Alejandro Recinos - ED Attending Attestation I have performed the following: I have examined & evaluated the patient, The case was reviewed & discussed with the resident, I agree w/resident's findings & plan - HPI HPI: 04/11/19 21:58 see resident hpi - Physicial Exam PE: 04/11/19 21:58 agree with resident exam - Medical Decision Making 04/11/19 21:58 63-year-old male for detox clearance with evidence of head injury CT scan of the head and cervical spine, labs and EKG Plan for transfer back to detox when cleared
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
[2019-04-11 22:16] LABS: EOS % 2.4 % (0-4.5); HEMOGLOBIN 14.9 GM/dL (11.7-16.9); LYMPH % 20.6 % (8-40); MCH 30.9 pg (25.7-33.7); MCHC 33.2 g/dl (32.0-35.9); MEAN CELL VOLUME 93.3 fl (80-96); MONO % 13.7 % (3.8-10.2); NEUT % 62.3 % (42.8-82.8); PLATELET COUNT 321 K/MM3 (134-434); RBC 4.83 M/mm3 (4.00-5.60); RDW 15.4 % (11.9-15.9); WHITE BLOOD COUNT 7.8 K/mm3 (4.0-10.0)
[2019-04-11 22:39] LABS: ALBUMIN 3.4 g/dl (3.4-5.0); ALK PHOS 117 U/L (45-117); ANION GAP 8 MMOL/L (8-16); BILIRUBIN,TOTAL 0.5 mg/dL (0.2-1); BLOOD UREA NITROGEN 12.4 mg/dL (7-18); CALCIUM 8.8 mg/dL (8.5-10.1); CHLORIDE 101 mmol/L (98-107); CO2 29 mmol/L (21-32); CREATININE 0.9 mg/dL (0.55-1.3); GLUCOSE,RANDOM 78 mg/dL (74-106); POTASSIUM 4.2 mmol/L (3.5-5.1); SGOT/AST 17 U/L (15-37); SGPT/ALT 18 U/L (13-61); SODIUM 139 mmol/L (136-145); TOT PROT 6.9 g/dl (6.4-8.2)
[2019-04-12 01:49] VITALS: BP 119/85; PULSE 87; TEMP 98.1
--- NOTE | 2019-04-12 09:52 | EKG ---
Test Reason : Blood Pressure : / mmHG Vent. Rate : 076 BPM Atrial Rate : 076 BPM P-R Int : 150 ms QRS Dur : 068 ms QT Int : 392 ms P-R-T Axes : 064 033 033 degrees QTc Int : 441 ms NORMAL SINUS RHYTHM POSSIBLE LEFT ATRIAL ENLARGEMENT NONSPECIFIC T WAVE ABNORMALITY ABNORMAL ECG WHEN COMPARED WITH ECG OF 29-JUL-2017 18:00, NO SIGNIFICANT CHANGE WAS FOUND Confirmed by KATHERINE DHILLON, MADISON ([id number]) on 04/12/2019 9:52:21 AM Referred By: Confirmed By:MADISON MURPHY MD
== END 2019-04-12 02:10 | disposition other institution (70) ==
LOC: JER 18:57
DX: S09.8XXA Other specified injuries of head, initial encounter (principal); W18.39XA Other fall on same level, initial encounter; Y93.89 Activity, other specified; Y92.480 Sidewalk as the place of occurrence of the external cause; Y99.8 Other external cause status; F10.10 Alcohol abuse, uncomplicated; G40.509 Epileptic seizures related to external causes, not intractable, without status epilepticus
CPT/HCPCS: 36415; 70450-TC; 72125-TC; 80053; 80307; 82550; 84484; 85025; 93005; 93010; 99284-25

== ENCOUNTER 2019-04-17 14:57 | Inpatient (IN) | payer OTHER ==
[2019-04-17] MEDS ORDERED: LOPERAMIDE HCL 2 MG CAPSULE PO PRN (15:46)
[2019-04-17] MEDS ORDERED: hydrOXYzine PAMOATE 25 MG CAPSULE (FP) PO PRN (15:46)
[2019-04-17] MEDS ORDERED: NICOTINE POLACRILEX 2 MG GUM BUC PRN (15:46)
[2019-04-17] MEDS ORDERED: P-EPHED 60MG/TRIPROLIDI 2.5MG TABLET PO PRN (15:46)
[2019-04-17] MEDS ORDERED: MAG HYDROX/AL HYDROX/SIMETH 30 ML UNIT-DOSE CUP PO PRN (15:46)
[2019-04-17] MEDS ORDERED: MAGNESIUM HYDROX 2400MG/30ML ORAL SUSPENSION 30 ML CUP PO PRN (15:46)
[2019-04-17] MEDS ORDERED: MAGNESIUM CITRATE 300 ML BOTTLE PO PRN (15:46)
[2019-04-17] MEDS ORDERED: guaiFENesin 200 MG/10 ML 10 ML UNIT-DOSE CUPS PO PRN (15:46)
[2019-04-17] MEDS ORDERED: MENTHOL/PHENOL 1 EACH UD MM PRN (15:46)
--- NOTE | 2019-04-17 15:49 | HP ---
[facility] Rehab Assess/Revision - Admission History Admitted to Rehab from: [facility] Date of Admission to Rehab: 04/17/2019 - Vital signs Vital Signs: Vital Signs Period Temp Pulse Resp BP Sys/Kumar Pulse Ox Last 24 Hr 97.6 F 90 16 125/71 - Findings Detox History & Physical reviewed: Yes Concur with findings: Yes Inpatient Rehab Admission - Rehab Decision to Admit Inpatient rehab admission?: Yes - Initial Determination Are CD services needed?: Yes Free of communicable disease: Yes Not in need of hospitalization: Yes - Rehab Admission Criteria Previous failed treatment: Yes Poor recovery environment: Yes Comorbidities: No Lacks judgement: No Patient is meeting Inpatient Rehab admission criteria:: Yes
[2019-04-17] MEDS: IBUPROFEN 400 MG TABLET (FP) PO PRN (18:15)
[2019-04-17] MEDS: METHOCARBAMOL 500 MG TABLET PO SCH (21:19)
[2019-04-17] MEDS: THIAMINE HCL 100 MG TABLET (FP) PO SCH (21:19)
[2019-04-18] MEDS: IBUPROFEN 400 MG TABLET (FP) PO PRN (06:35)
[2019-04-18] MEDS: PRENATAL VITAMINS W/ FOLIC ACID TABLET (FP) PO SCH (10:05)
[2019-04-18] MEDS: METHOCARBAMOL 500 MG TABLET PO SCH ×2 (10:05→21:15)
[2019-04-18] MEDS: NICOTINE 14 MG/24 HOURS TOPICAL PATCH TD SCH (10:06)
[2019-04-18] MEDS: ACETAMINOPHEN 325 MG TABLET (FP) PO PRN (10:07)
--- NOTE | 2019-04-18 14:20 | PN ---
BHS Progress Note (SOAP) Subjective: patient is c/o pain. Objective: General: no apparent distress Lung: clear Heart: s1 s2 MSK: Weight bearing with a cane; limited ROM related to pain, injury. Vital Signs (72 hours) 04/17/19 04/18/19 04/18/19 15:36 00:30 03:30 Temperature 97.6 F Pulse Rate 90 Respiratory 16 18 18 Rate Blood Pressure 125/71 04/18/19 06:56 Temperature 97.3 F L Pulse Rate 86 Respiratory 18 Rate Blood Pressure 150/92 04/18/19 14:18 Assessment: LBP 04/18/19 14:20 Plan: Increased motrin Added jennifer-scott and lidoderm patch
[2019-04-18] MEDS: LIDOCAINE 5% TOPICAL PATCH TP SCH (16:27)
[2019-04-18] MEDS: THIAMINE HCL 100 MG TABLET (FP) PO SCH (21:15)
[2019-04-18] MEDS: LIDOCAINE PATCH REMOVAL MC SCH (21:16)
[2019-04-18] MEDS: IBUPROFEN 600 MG TABLET (FP) PO PRN (21:18)
[2019-04-19] MEDS: ACETAMINOPHEN 325 MG TABLET (FP) PO PRN (06:36)
[2019-04-19] MEDS: PRENATAL VITAMINS W/ FOLIC ACID TABLET (FP) PO SCH (10:35)
[2019-04-19] MEDS: LIDOCAINE 5% TOPICAL PATCH TP SCH (10:35)
[2019-04-19] MEDS: NICOTINE 14 MG/24 HOURS TOPICAL PATCH TD SCH (10:36)
[2019-04-19] MEDS: IBUPROFEN 600 MG TABLET (FP) PO PRN (10:38)
[2019-04-19] MEDS: METHOCARBAMOL 500 MG TABLET PO SCH ×2 (11:44→21:10)
[2019-04-19] MEDS: LIDOCAINE PATCH REMOVAL MC SCH (21:10)
[2019-04-19] MEDS: METHYL SALICYLATE/MENTHOL OINT 30 GM TUBE TP SCH (21:10)
[2019-04-19] MEDS: MELATONIN 5 MG TABLETS PO PRN (21:11)
[2019-04-19] MEDS: THIAMINE HCL 100 MG TABLET (FP) PO SCH (21:11)
[2019-04-20] MEDS: IBUPROFEN 600 MG TABLET (FP) PO PRN ×2 (06:11→21:20)
[2019-04-20] MEDS: PRENATAL VITAMINS W/ FOLIC ACID TABLET (FP) PO SCH (10:30)
[2019-04-20] MEDS: LIDOCAINE 5% TOPICAL PATCH TP SCH (10:31)
[2019-04-20] MEDS: METHOCARBAMOL 500 MG TABLET PO SCH ×2 (10:31→21:19)
[2019-04-20] MEDS: NICOTINE 14 MG/24 HOURS TOPICAL PATCH TD SCH (10:31)
[2019-04-20] MEDS: METHYL SALICYLATE/MENTHOL OINT 30 GM TUBE TP SCH (10:38)
[2019-04-20] MEDS: THIAMINE HCL 100 MG TABLET (FP) PO SCH (21:19)
[2019-04-20] MEDS: LIDOCAINE PATCH REMOVAL MC SCH (22:40)
[2019-04-21] MEDS: PRENATAL VITAMINS W/ FOLIC ACID TABLET (FP) PO SCH (10:09)
[2019-04-21] MEDS: METHOCARBAMOL 500 MG TABLET PO SCH ×2 (10:09→21:15)
[2019-04-21] MEDS: LIDOCAINE 5% TOPICAL PATCH TP SCH (10:10)
[2019-04-21] MEDS: METHYL SALICYLATE/MENTHOL OINT 30 GM TUBE TP SCH (10:10)
[2019-04-21] MEDS: NICOTINE 14 MG/24 HOURS TOPICAL PATCH TD SCH (10:10)
[2019-04-21] MEDS: THIAMINE HCL 100 MG TABLET (FP) PO SCH (21:15)
[2019-04-21] MEDS: LIDOCAINE PATCH REMOVAL MC SCH (21:16)
[2019-04-21] MEDS: MELATONIN 5 MG TABLETS PO PRN (21:16)
[2019-04-22] MEDS: PRENATAL VITAMINS W/ FOLIC ACID TABLET (FP) PO SCH (10:00)
[2019-04-22] MEDS: METHOCARBAMOL 500 MG TABLET PO SCH ×2 (10:00→21:14)
[2019-04-22] MEDS: LIDOCAINE 5% TOPICAL PATCH TP SCH (10:00)
[2019-04-22] MEDS: NICOTINE 14 MG/24 HOURS TOPICAL PATCH TD SCH (10:00)
[2019-04-22] MEDS: METHYL SALICYLATE/MENTHOL OINT 30 GM TUBE TP SCH (10:02)
[2019-04-22] MEDS: THIAMINE HCL 100 MG TABLET (FP) PO SCH (21:13)
[2019-04-22] MEDS: IBUPROFEN 600 MG TABLET (FP) PO PRN (21:14)
[2019-04-22] MEDS: LIDOCAINE PATCH REMOVAL MC SCH (21:15)
[2019-04-23] MEDS: PRENATAL VITAMINS W/ FOLIC ACID TABLET (FP) PO SCH (09:22)
[2019-04-23] MEDS: METHOCARBAMOL 500 MG TABLET PO SCH ×2 (09:22→21:19)
[2019-04-23] MEDS: METHYL SALICYLATE/MENTHOL OINT 30 GM TUBE TP SCH (09:22)
[2019-04-23] MEDS: LIDOCAINE 5% TOPICAL PATCH TP SCH (09:22)
[2019-04-23] MEDS: NICOTINE 14 MG/24 HOURS TOPICAL PATCH TD SCH (09:23)
[2019-04-23] MEDS: THIAMINE HCL 100 MG TABLET (FP) PO SCH (21:19)
[2019-04-23] MEDS: IBUPROFEN 600 MG TABLET (FP) PO PRN (21:19)
[2019-04-23] MEDS: LIDOCAINE PATCH REMOVAL MC SCH (21:20)
[2019-04-24] MEDS: IBUPROFEN 600 MG TABLET (FP) PO PRN ×2 (05:47→21:08)
[2019-04-24] MEDS: METHOCARBAMOL 500 MG TABLET PO SCH ×2 (10:22→21:08)
[2019-04-24] MEDS: PRENATAL VITAMINS W/ FOLIC ACID TABLET (FP) PO SCH (10:22)
[2019-04-24] MEDS: METHYL SALICYLATE/MENTHOL OINT 30 GM TUBE TP SCH (10:23)
[2019-04-24] MEDS: LIDOCAINE 5% TOPICAL PATCH TP SCH (10:23)
[2019-04-24] MEDS: NICOTINE 14 MG/24 HOURS TOPICAL PATCH TD SCH (10:24)
[2019-04-24] MEDS: MELATONIN 5 MG TABLETS PO PRN (21:08)
[2019-04-24] MEDS: THIAMINE HCL 100 MG TABLET (FP) PO SCH (21:08)
[2019-04-24] MEDS: LIDOCAINE PATCH REMOVAL MC SCH (21:09)
[2019-04-25] MEDS: LIDOCAINE 5% TOPICAL PATCH TP SCH (10:27)
[2019-04-25] MEDS: NICOTINE 14 MG/24 HOURS TOPICAL PATCH TD SCH (10:27)
[2019-04-25] MEDS: METHOCARBAMOL 500 MG TABLET PO SCH ×2 (10:28→21:14)
[2019-04-25] MEDS: PRENATAL VITAMINS W/ FOLIC ACID TABLET (FP) PO SCH (10:28)
[2019-04-25] MEDS: METHYL SALICYLATE/MENTHOL OINT 30 GM TUBE TP SCH (10:29)
[2019-04-25] MEDS: LIDOCAINE PATCH REMOVAL MC SCH (21:13)
[2019-04-25] MEDS: MELATONIN 5 MG TABLETS PO PRN (21:14)
[2019-04-25] MEDS: THIAMINE HCL 100 MG TABLET (FP) PO SCH (21:14)
[2019-04-26] MEDS: NICOTINE 14 MG/24 HOURS TOPICAL PATCH TD SCH (10:09)
[2019-04-26] MEDS: LIDOCAINE 5% TOPICAL PATCH TP SCH (10:09)
[2019-04-26] MEDS: PRENATAL VITAMINS W/ FOLIC ACID TABLET (FP) PO SCH (10:09)
[2019-04-26] MEDS: METHOCARBAMOL 500 MG TABLET PO SCH ×2 (10:09→21:17)
[2019-04-26] MEDS: METHYL SALICYLATE/MENTHOL OINT 30 GM TUBE TP SCH (10:10)
[2019-04-26] MEDS: THIAMINE HCL 100 MG TABLET (FP) PO SCH (21:17)
[2019-04-26] MEDS: LIDOCAINE PATCH REMOVAL MC SCH (21:17)
[2019-04-26] MEDS: IBUPROFEN 600 MG TABLET (FP) PO PRN (21:18)
[2019-04-27] MEDS: NICOTINE 14 MG/24 HOURS TOPICAL PATCH TD SCH (10:14)
[2019-04-27] MEDS: METHOCARBAMOL 500 MG TABLET PO SCH ×2 (10:14→21:18)
[2019-04-27] MEDS: PRENATAL VITAMINS W/ FOLIC ACID TABLET (FP) PO SCH (10:14)
[2019-04-27] MEDS: LIDOCAINE 5% TOPICAL PATCH TP SCH (10:14)
[2019-04-27] MEDS: METHYL SALICYLATE/MENTHOL OINT 30 GM TUBE TP SCH (10:14)
[2019-04-27] MEDS: IBUPROFEN 600 MG TABLET (FP) PO PRN (21:18)
[2019-04-27] MEDS: THIAMINE HCL 100 MG TABLET (FP) PO SCH (21:18)
[2019-04-27] MEDS: LIDOCAINE PATCH REMOVAL MC SCH (21:19)
[2019-04-28] MEDS: NICOTINE 14 MG/24 HOURS TOPICAL PATCH TD SCH (10:21)
[2019-04-28] MEDS: LIDOCAINE 5% TOPICAL PATCH TP SCH (10:21)
[2019-04-28] MEDS: PRENATAL VITAMINS W/ FOLIC ACID TABLET (FP) PO SCH (10:21)
[2019-04-28] MEDS: METHOCARBAMOL 500 MG TABLET PO SCH ×2 (10:22→21:26)
[2019-04-28] MEDS: METHYL SALICYLATE/MENTHOL OINT 30 GM TUBE TP SCH (12:24)
[2019-04-28] MEDS: THIAMINE HCL 100 MG TABLET (FP) PO SCH (21:26)
[2019-04-28] MEDS: IBUPROFEN 600 MG TABLET (FP) PO PRN (21:26)
[2019-04-28] MEDS: LIDOCAINE PATCH REMOVAL MC SCH (21:27)
[2019-04-29] MEDS: LIDOCAINE 5% TOPICAL PATCH TP SCH (09:50)
[2019-04-29] MEDS: PRENATAL VITAMINS W/ FOLIC ACID TABLET (FP) PO SCH (09:51)
[2019-04-29] MEDS: METHOCARBAMOL 500 MG TABLET PO SCH ×2 (09:51→21:18)
[2019-04-29] MEDS: NICOTINE 14 MG/24 HOURS TOPICAL PATCH TD SCH (09:51)
[2019-04-29] MEDS: METHYL SALICYLATE/MENTHOL OINT 30 GM TUBE TP SCH (09:52)
[2019-04-29] MEDS: LIDOCAINE PATCH REMOVAL MC SCH (21:18)
[2019-04-29] MEDS: THIAMINE HCL 100 MG TABLET (FP) PO SCH (21:18)
[2019-04-30 07:55] VITALS: BP 142/90; PULSE 74; TEMP 97.3
[2019-04-30] MEDS: METHYL SALICYLATE/MENTHOL OINT 30 GM TUBE TP SCH (11:06)
[2019-04-30] MEDS: NICOTINE 14 MG/24 HOURS TOPICAL PATCH TD SCH (11:06)
[2019-04-30] MEDS: LIDOCAINE 5% TOPICAL PATCH TP SCH (11:06)
[2019-04-30] MEDS: METHOCARBAMOL 500 MG TABLET PO SCH ×2 (11:06→21:30)
[2019-04-30] MEDS: PRENATAL VITAMINS W/ FOLIC ACID TABLET (FP) PO SCH (11:06)
[2019-04-30] MEDS: LIDOCAINE PATCH REMOVAL MC SCH (21:30)
[2019-04-30] MEDS: THIAMINE HCL 100 MG TABLET (FP) PO SCH (21:30)
--- NOTE | 2019-05-01 08:42 | DS ---
[facility] Rehab Discharge Summary - [facility] Rehab Discharge Summary Admission Date: 04/17/19 Discharge Date: 05/01/19 - History Present History: Alcohol dependence Additional Comments: Pt is a 63 y/o male admitted to rehab for JASS after completing detox on . Pt connected to [place], [place] for medical management. Pertinent Past History: HTN(no meds) Truamatic hematoma of head Hx Falls Use of cane for ambulation - Discharge Physical Exam Vital Signs: Vital Signs Temperature 97.3 F L 04/30/19 07:55 Pulse Rate 74 04/30/19 07:55 Respiratory Rate 18 05/01/19 03:30 Blood Pressure 142/90 04/30/19 07:55 O2 Sat by Pulse Oximetry (%) Alert o x 3 nad oob ambulating with steady gait with a cane cardiac:s1 s2,rrr lungs:cta,arabella. abdomen:soft,+bs,nt,nd extremities/skin:no edema,skin intact Pertinent Admission Physical Exam Findings: head ct was negative for intracranial process. EKG shows NSR without ST elevations or depressions with TWI in V4-V6 ( CONSISTENT with previous EKG) - Treatment Discharge Condition: Discharge condition good Hospital Course: Rehabilitated safely and responded well. CD aftercare referral accepted. - Medication Discharge Medications: Ambulatory Orders NK [No Known Home Medication] 11/22/16 - Medication-Assisted Treatment (MAT) Medication-Assisted Treatment (MAT): No - Discharge Instructions Diet, activity, other medical instructions: Diet:MACEY Activity: oob ad yuri with cane Other medical instructions:follow up with primary care provider at [place], [place] for medical management. follow up with CD aftercare referral as recommended and [facility] - Diagnosis (1) Alcohol withdrawal seizure Status: Suspected Qualifiers: Complication of substance-induced condition: uncomplicated Qualified Code(s ): F10.230 - Alcohol dependence with withdrawal, uncomplicated (2) HTN (hypertension) Status: Chronic Qualifiers: Hypertension type: essential hypertension Qualified Code(s): I10 - Essential (primary) hypertension (3) Nicotine dependence Status: Chronic Qualifiers: Nicotine product type: cigarettes Substance use status: uncomplicated Qualified Code(s): F17.210 - Nicotine dependence, cigarettes, uncomplicated (4) Alcohol dependence Status: Chronic Qualifiers: Substance use status: uncomplicated Qualified Code(s): F10.20 - Alcohol dependence, uncomplicated - Follow-up Referral Minutes to complete discharge: 20 - AMA Did Patient Leave Against Medical Advice: No
[2019-05-01] MEDS: METHYL SALICYLATE/MENTHOL OINT 30 GM TUBE TP SCH (10:19)
[2019-05-01] MEDS: PRENATAL VITAMINS W/ FOLIC ACID TABLET (FP) PO SCH (10:20)
[2019-05-01] MEDS: LIDOCAINE 5% TOPICAL PATCH TP SCH (10:20)
[2019-05-01] MEDS: METHOCARBAMOL 500 MG TABLET PO SCH (10:20)
[2019-05-01] MEDS: NICOTINE 14 MG/24 HOURS TOPICAL PATCH TD SCH (10:21)
[2019-05-01] MEDS: IBUPROFEN 600 MG TABLET (FP) PO PRN (10:21)
== END 2019-05-01 10:35 | disposition home or self-care (01) | DRG 772 ==
LOC: YASAS 14:57 → Y5N 15:02
PROVIDERS: ADMIT Neuromusculoskeletal Medicine & OMM; ATTEND Neuromusculoskeletal Medicine & OMM
PROC: HZ42ZZZ Group Counseling for Substance Abuse Treatment, Cognitive-Behavioral (ICD-10-PCS; principal; 2019-04-17)
DX: F10.20 Alcohol dependence, uncomplicated (principal); I10 Essential (primary) hypertension; M54.5 Low back pain; S00.83XA Contusion of other part of head, initial encounter; R29.6 Repeated falls; Z99.89 Dependence on other enabling machines and devices; Z88.0 Allergy status to penicillin

== ENCOUNTER 2019-05-11 10:34 | Inpatient (IN) | payer OTHER ==
[2019-05-11 11:36] VITALS: BMI 24.2
--- NOTE | 2019-05-11 12:56 | HP ---
CIWA Score Nausea/Vomitin Muscle Tremors: 4-Moderate,w/Arms Extend Anxiety: 2 Agitation: 0-Normal Activity Paroxysmal Sweats: No Perspiration Orientation: 1-Uncertain about Date Tacttile Disturbances: 1-Very Mild Itch/Numbness Auditory Disturbances: 0-None Visual Disturbances: 2-Mild Sensitivity Headache: 2-Mild CIWA-Ar Total Score: 14 - Admission Criteria OASAS Guidelines: Admission for Medically Managed Detox: Requires at least one of the followin. CIWA greater than 12 2. Seizures within the past 24 hours 3. Delirium tremens within the past 24 hours 4. Hallucinations within the past 24 hours 5. Acute intervention needed for co occurring medical disorder 6. Acute intervention needed for co occurring psychiatric disorder 7. Severe withdrawal that cannot be handled at a lower level of care (continued vomiting, continued diarrhea, abnormal vital signs) requiring intravenous medication and/or fluids 8. 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 Cardiovascular: Yes: HTN - Smoking History Smoking history: Current some day smoker Have you smoked in the past 12 months: Yes Aproximately how many cigarettes per day: 3 - Alcohol/Substance Use Hx Alcohol Use: Yes Admission ROS S - HPI Allergies/Adverse Reactions: Allergies Allergy/AdvReac Type Severity Reaction Status Date / Time Penicillins Allergy Severe Elevated Verified 04/17/19 19:48 Blood Pressure History of Present Illness: pt here requesting detox from etoh use , reports 2-3 pints/day , relapsed after d/c from this facility , claims he was not here 05/01/19 ." it wasn't me" PMHX : r tib- fib old frx , seizure d/o Exam Limitations: No Limitations - Ebola screening Have you traveled outside of the country in the last 21 days: No Have you had contact with anyone from an Ebola affected area: No Do you have a fever: No - Review of Systems Constitutional: Loss of Appetite EENT: reports: See HPI Respiratory: reports: No Symptoms reported Cardiac: reports: No Symptoms Reported GI: reports: See HPI, Nausea : reports: No Symptoms Reported Musculoskeletal: reports: Back Pain, Joint Pain (chronic) Integumentary: reports: No Symptoms Reported Neuro: reports: See HPI, Headache Endocrine: reports: No Symptoms Reported Psychiatric: reports: Orientated x3, Anxious Patient History - Patient Medical History Hx Anemia: No Hx Asthma: No Hx Chronic Obstructive Pulmonary Disease (COPD): No Hx Cancer: No Hx Cardiac Disorders: No Hx Congestive Heart Failure: No Hx Hypertension: Yes (not on meds.) Hx Hypercholesterolemia: No Hx Pacemaker: No HX Cerebrovascular Accident: No Hx Seizures: Yes (etoh related seizures last 1 week.) Hx Dementia: No Hx Diabetes: No Hx Gastrointestinal Disorders: No Hx Liver Disease: No Hx Genitourinary Disorders: No Hx Sexually Transmitted Disorders: No Hx Renal Disease (ESRD): No Hx Thyroid Disease: No Hx Human Immunodeficiency Virus (HIV): No Hx Hepatitis C: No Hx Depression: No Hx Suicide Attempt: No Hx Bipolar Disorder: No Hx Schizophrenia: No - Patient Surgical History Past Surgical History: Yes Hx Neurologic Surgery: No Hx Cataract Extraction: No Hx Cardiac Surgery: No Hx Lung Surgery: No Hx Breast Surgery: No Hx Breast Biopsy: No Hx Abdominal Surgery: No Hx Appendectomy: No Hx Cholecystectomy: No Hx Genitourinary Surgery: No Hx Section: No Hx Orthopedic Surgery: No (FX OF R TIBIA/FIBULA) Other Surgical History: R ear sx Anesthesia Reaction: No - PPD History Date: 07/31/17 Results: 0 MM - Smoking Cessation Smoking history: Current some day smoker Have you smoked in the past 12 months: Yes Aproximately how many cigarettes per day: 3 Cigars Per Day: 0 Hx Chewing Tobacco Use: No Initiated information on smoking cessation: No - Substances abused Alcohol Substance route: Oral Frequency: Daily Amount used: 2-3 Pint of vodka Age of first use: 10 Date of last use: 05/11/19 Admission Physical Exam BHS - Vital Signs Vital Signs: Vital Signs - 24 hr 05/11/19 11:28 Temperature 97.9 F Pulse Rate 98 H Respiratory 20 Rate Blood Pressure 124/73 - Physical General Appearance: Yes: Mild Distress HEENTM: Yes: EOMI, Hearing grossly Normal, Normocephalic, Normal Voice Respiratory: Yes: Chest Non-Tender, Lungs Clear, Normal Breath Sounds, No Respiratory Distress, No Accessory Muscle Use Neck: Yes: No masses,lesions,Nodules, Trachea in good position Cardiology: Yes: Regular Rhythm, Regular Rate, S1, S2 Abdominal: Yes: Non Tender, Soft Musculoskeletal: Yes: Other (unsteady gait) Extremities: Yes: Non-Tender Neurological: Yes: Fully Oriented, Alert, Motor Strength 5/5, Normal Mood/Affect Integumentary: Yes: Dry, Warm - Diagnostic (1) Alcohol dependence with uncomplicated withdrawal Current Visit: Yes Status: Chronic Breathalyzer - Breathalyzer Breathalyzer: 0.005 Urine Drug Screen - Test Device Lot number: [id number] Expiration date: 01/18/21 - Control Is test valid?: Yes - Results Drug screen NEGATIVE: No Urine drug screen results: BZO-Benzodiazepines Inpatient Rehab Admission - Rehab Decision to Admit Inpatient rehab admission?: No
[2019-05-11] MEDS ORDERED: MELATONIN 5 MG TABLETS PO PRN (13:50)
[2019-05-11] MEDS ORDERED: MENTHOL/PHENOL 1 EACH UD MM PRN (13:50)
[2019-05-11] MEDS ORDERED: ACETAMINOPHEN 325 MG TABLET (FP) PO PRN ×2 (13:50)
[2019-05-11] MEDS ORDERED: MAGNESIUM CITRATE 300 ML BOTTLE PO PRN (13:50)
[2019-05-11] MEDS ORDERED: BISMUTH SUBSALICYLATE 262 MG/15 ML BTL PO PRN (13:50)
[2019-05-11] MEDS ORDERED: MAG HYDROX/AL HYDROX/SIMETH 30 ML UNIT-DOSE CUP PO PRN (13:50)
[2019-05-11] MEDS ORDERED: MAGNESIUM HYDROX 2400MG/30ML ORAL SUSPENSION 30 ML CUP PO PRN (13:50)
[2019-05-11] MEDS ORDERED: diazePAM 5 MG TABLET PO PRN (13:51)
[2019-05-11] MEDS: diazePAM 5 MG TABLET PO SCH ×2 (14:00→21:57)
[2019-05-11] MEDS: IBUPROFEN 400 MG TABLET (FP) PO PRN (18:14)
[2019-05-11] MEDS: THIAMINE HCL 100 MG TABLET (FP) PO SCH (21:57)
[2019-05-11] MEDS: hydrOXYzine PAMOATE 25 MG CAPSULE (FP) PO PRN (21:57)
[2019-05-12] MEDS: diazePAM 5 MG TABLET PO SCH ×3 (05:16→17:56)
[2019-05-12] MEDS: PRENATAL VITAMINS W/ FOLIC ACID TABLET (FP) PO SCH (10:22)
[2019-05-12] MEDS: hydrOXYzine PAMOATE 25 MG CAPSULE (FP) PO PRN (10:22)
[2019-05-12] MEDS ORDERED: LIDOCAINE 5% TOPICAL PATCH TP ONE (10:26)
--- NOTE | 2019-05-12 10:26 | PN ---
S CIWA - CIWA Score Nausea/Vomitin-No Nausea/No Vomiting Muscle Tremors: 2 Anxiety: 1-Mildly Anxious Agitation: 1-Slight > Activity Paroxysmal Sweats: 1-Minimal Palms Moist Orientation: 0-Oriented Tacttile Disturbances: 0-None Auditory Disturbances: 0-None Visual Disturbances: 0-None Headache: 0-None Present CIWA-Ar Total Score: 5 BHS Progress Note (SOAP) Subjective: leg/back pain sweats Objective: 05/12/19 10:25 Vital Signs Temperature 96.3 F L 05/12/19 09:37 Pulse Rate 86 05/12/19 09:37 Respiratory Rate 18 05/12/19 09:37 Blood Pressure 133/78 05/12/19 09:37 O2 Sat by Pulse Oximetry (%) [id number] lying in bed no acute distress Assessment: 05/12/19 10:26 mild withdrawals Plan: continue detox cane ordered lidocaine patch motrin prn d/c in am
[2019-05-12] MEDS ORDERED: LIDOCAINE PATCH REMOVAL MC SCH (22:00)
[2019-05-12] MEDS: THIAMINE HCL 100 MG TABLET (FP) PO SCH (22:18)
[2019-05-12] MEDS: IBUPROFEN 400 MG TABLET (FP) PO PRN (22:19)
[2019-05-13] MEDS ORDERED: diazePAM 5 MG TABLET PO ONE (06:00)
[2019-05-13 09:23] VITALS: BP 125/76; PULSE 86; TEMP 98.1
[2019-05-13] MEDS ORDERED: LIDOCAINE 5% TOPICAL PATCH TP SCH (10:00)
[2019-05-13] MEDS: PRENATAL VITAMINS W/ FOLIC ACID TABLET (FP) PO SCH (10:48)
--- NOTE | 2019-05-13 18:00 | DS ---
[facility] Detox Discharge Summary Admission Date: 05/11/19 Discharge Date: 05/13/19 - History Present History: Alcohol Dependence Additional Comments: PATIENT GOING HOME FOR TIME BEING NO BEDS ARE CURRENTLY AVAILABLE FOR ADMISSION AT [facility] ([place], [place]). PATIENT ADVISED TO CONTACT [facility] ADMISSIONS DEPT. EARLY IN AM ON 05/15/2019 TO INQUIRE ABOUT ADMISSION BED AVAILABILITY AT THAT TIME. PATIENT ALSO ADVISED TO CONSIDER LOCAL 12-STEP / NA / AA OUTPATIENT SUPPORT GROUP PROGRAMS FOR AFTERCARE. PATIENT VERBALIZED UNDERSTANDING OF RECOMMENDATIONS PRESENTED TO HIM PRIOR TO DISCHARGE FROM DETOX UNIT. PATIENT WAS DISCHARGED FROM DETOX UNIT IN STABLE MEDICAL CONDITION. Pertinent Past History: HTN, History Of Seizures, History of Old fracture of right Tibia-Fibula. - Physical Exam Results Vital Signs: Vital Signs Temperature 98.1 F 05/13/19 09:23 Pulse Rate 86 05/13/19 09:23 Respiratory Rate 18 05/13/19 09:23 Blood Pressure 125/76 05/13/19 09:23 O2 Sat by Pulse Oximetry (%) Pertinent Admission Physical Exam Findings: WITHDRAWAL SYMPTOMS. - Treatment Hospital Course: Detox Protocol Followed, Detoxed Safely, Responded well, Discharged Condition Good Patient has Accepted a Rehab Referral to: PT. WILL APPLY FOR ADMISSION TO [facility] ON 05/15/2019. - Medication Discharge Medications: Ambulatory Orders NK [No Known Home Medication] 11/22/16 - Diagnosis (1) Alcohol dependence with uncomplicated withdrawal Status: Acute - AMA Did Patient Leave Against Medical Advice: No
== END 2019-05-13 11:17 | disposition home or self-care (01) | DRG 775 ==
LOC: YASAS 10:34 → Y6N 13:14
PROVIDERS: ADMIT Allergy & Immunology; ATTEND Allergy & Immunology
PROC: HZ2ZZZZ Detoxification Services for Substance Abuse Treatment (ICD-10-PCS; principal; 2019-05-11)
PROC: HZ2ZZZZ Detoxification Services for Substance Abuse Treatment (ICD-10-PCS; 2019-05-11)
DX: F10.230 Alcohol dependence with withdrawal, uncomplicated (principal); F17.210 Nicotine dependence, cigarettes, uncomplicated; I10 Essential (primary) hypertension; G40.509 Epileptic seizures related to external causes, not intractable, without status epilepticus; M54.9 Dorsalgia, unspecified; Z99.89 Dependence on other enabling machines and devices; Z88.0 Allergy status to penicillin; Z59.0 Homelessness; Z87.81 Personal history of (healed) traumatic fracture